=== PATIENT | male | born 1950 | race Caucasian/White ===

== ENCOUNTER 2024-08-07 15:25 | Day surgery (SDC) | payer MEDICARE, OTHER | END 2024-08-07 16:30 | disposition home or self-care (01) | LOC: SDC-PAIN 15:25 | PROVIDERS: ATTEND Psychiatry & Neurology Pain Medicine | DX: Z53.8 Procedure and treatment not carried out for other reasons (principal); E11.9 Type 2 diabetes mellitus without complications | CPT/HCPCS: 82947 ==

== ENCOUNTER 2024-08-21 15:06 | Day surgery (SDC) | payer MEDICARE, OTHER ==
[2024-08-21] MEDS ORDERED: BUPIVACAINE 0.5% VIAL IJ ONE (15:07)
[2024-08-21] MEDS ORDERED: Depo-Medrol 40 MG/ML IM ONE (15:07)
[2024-08-21] MEDS ORDERED: LIDOCAINE HCL 1% AMPUL 5 ML IJ ONE (15:07)
--- NOTE | 2024-08-21 18:24 | XRAY ---
Indication: Left SI joint injection. Intraoperative fluoroscopy provided for 16 seconds. Single digital spot image submitted for interpretation demonstrates posterior needle tip projecting over left SI joint. Small amount of contrast injected for needle tip placement. Correlate with intraoperative findings/report.
--- NOTE | 2024-08-22 09:16 | XRAY ---
16 seconds of fluoroscopy was used in surgery for a left sacroiliac joint injection.
== END 2024-08-21 17:07 | disposition home or self-care (01) ==
LOC: SDC-PAIN 15:06
PROVIDERS: ATTEND Psychiatry & Neurology Pain Medicine
DX: M46.1 Sacroiliitis, not elsewhere classified (principal); E11.9 Type 2 diabetes mellitus without complications
CPT/HCPCS: 27096; 72170; 77002; 82947; Q9966

== ENCOUNTER 2024-09-18 14:50 | Day surgery (SDC) | payer MEDICARE, OTHER ==
[2024-09-18] MEDS ORDERED: LIDOCAINE HCL 1% AMPUL 5 ML IJ ONE (14:51)
[2024-09-18] MEDS ORDERED: BUPIVACAINE 0.5% VIAL IJ ONE (14:51)
[2024-09-18] MEDS ORDERED: Depo-Medrol 40 MG/ML IM ONE (14:51)
--- NOTE | 2024-09-18 20:50 | XRAY ---
Indication: Left hip injection. Intraoperative fluoroscopy provided for 14 seconds. Single digital spot image submitted for interpretation demonstrates needle tip projecting lateral to left femur neck. Small amount of contrast injected for needle tip placement. Correlate with intraoperative findings/report.
--- NOTE | 2024-09-19 19:24 | XRAY ---
14 seconds of fluoroscopy was used in surgery for a left intra-articular hip injection.
== END 2024-09-18 18:25 | disposition home or self-care (01) ==
LOC: SDC-PAIN 14:50
PROVIDERS: ATTEND Psychiatry & Neurology Pain Medicine
DX: M16.12 Unilateral primary osteoarthritis, left hip (principal); E11.9 Type 2 diabetes mellitus without complications
CPT/HCPCS: 20610; 73501; 77002; 82947; Q9966

== ENCOUNTER 2025-03-20 11:10 | Observation (INO) | payer MEDICARE, OTHER ==
[2025-03-20] MEDS ORDERED: HUMULIN R ONE (11:38)
[2025-03-20] MEDS: HUMULIN R SQ ONE (11:39)
[2025-03-20 11:42] LABS: BASOPHIL % 0.4 % (0.2-1.2); Basophil (Absolute #) 0.03 x10^3/uL (0.01-0.08); Eosinophil (Absolute #) 0.06 x10^3/uL (0.04-0.54); Hematocrit 40.4 % (40.1-51.0); Hemoglobin 13.7 g/dL (13.7-17.5); IMMATURE GRAN # 0.03 x10^3u/L (0.001-0.031); IMMATURE GRAN % 0.4 % (0.001-0.429); Lymphocyte (Absolute #) 1.48 x10^3/uL (1.32-3.57); Mean Corpuscular Hemoglobin 30.9 pg (25.7-32.2); Mean Corpuscular Hgb Concent. 33.9 g/dL (32.3-36.5); Monocyte (Absolute #) 0.45 x10^3/uL (0.30-0.82); NUCLEATED RBC # 0.00 x10^3u/L (0.00-0.012); NUCLEATED RBC % 0.0 % (0.00-0.2); Platelet Count 189 x10^3/uL (163-337); Red Blood Count 4.43 x10^6/uL (4.63-6.08); White Blood Count 7.2 x10^3/uL (4.23-9.07)
--- NOTE | 2025-03-20 11:44 | ERPHSYRPT ---
- History of Present Illness Time Seen by Provider: 03/20/25 11:30 Source: patient Patient Subjective Stated Complaint: high blood sugar, pt states he is needing some insulin Triage Nursing Assessment: Pt presents to the ER via private vehicle. pt able to ambulate into the ER without complications. Pt alert and oriented x 4. Pt was seen in Dr. Foy office today where he presented for high blood sugar. The RN at the clinic told the pt to come to the ED because the blood sugar meter was reading "high". Blood suygar rechecked in the ER and meter still reading "high". Pt states that he has been experiencing dizziness. Pt denies nausea, vomiting, diarrhea. Physician History: Patient presents for high blood sugar. He reports his blood sugars been in the 300s for at least several weeks. He is taking oral medications for his diabetes but does not know the names. He states he was previously on insulin to years ago. He believes his blood sugar is high because he has been eating foods high in glucose and sugars. He said no recent infection including no cough or urinary symptoms. He has had no vomiting or abdominal pain. He said no confusion. Does state he feels lightheaded when he is up moving around and has had urinary frequency Allergies/Adverse Reactions: No Known Drug Allergies Allergy (Verified 03/20/25 11:17) Hx Tetanus, Diphtheria Vaccination/Date Given: No Hx Influenza Vaccination/Date Given: No Hx Pneumococcal Vaccination/Date Given: No Immunizations Up to Date: Yes Travel Risk - International Travel Have you traveled outside of the country in past 3 weeks: No - Emerging Infectious Disease Are you exhibiting symptoms associated with any current EIDs: No - Review of Systems Constitutional: No Fever, No Chills Eyes: No Symptoms Ears, Nose, & Throat: No Symptoms Respiratory: No Cough, No Dyspnea Cardiac: No Chest Pain, No Edema, No Syncope Abdominal/Gastrointestinal: No Abdominal Pain, No Nausea, No Vomiting, No Diarrhea Genitourinary Symptoms: No Dysuria Musculoskeletal: No Back Pain, No Neck Pain Skin: No Rash Neurological: Dizziness, No Focal Weakness, No Sensory Changes Psychological: No Symptoms Endocrine: No Symptoms All Other Systems: Reviewed and Negative - Past Medical History Neurological History: Peripheral Neuropathy ENT History: No Pertinent History Cardiac History: High Cholesterol Respiratory History: Other Endocrine Medical History: Diabetes Type II Musculoskeletal History: Osteoarthritis GI Medical History: No Pertinent History History: No Pertinent History Psycho-Social History: No Pertinent History Male Reproductive Disorders: No Pertinent History Other Medical History: 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 PATIENT IS SUPPOSE TO BE ON 2L O2 EVERYDAY, BUT HE ONLY SLEEPS WITH IT. - Past Surgical History Past Surgical History: No Neuro Surgical History: No Pertinent History Cardiac: No Pertinent History Respiratory: No Pertinent History Gastrointestinal: No Pertinent History Genitourinary: No Pertinent History Musculoskeletal: No Pertinent History Male Surgical History: No Pertinent History - Social History Smoking Status: Former smoker Exposure to second hand smoke: No Drug Use: none - Social Determinants of Health Will the patient participate in the screening: Yes Do you worry about a steady place to live?: No Do you have any problems with any of the following?: No known problems In the past 12 months,have you had to go without utilities?: No Transportation Issues: No Has anyone in your support network made you feel unsafe?: No Have you or anyone in your house had to go w/o enough food: No - Nursing Vital Signs Nursing Vital Signs: Initial Vital Signs Temperature 96.8 F 03/20/25 11:18 Pulse Rate 97 H 03/20/25 11:18 Respiratory Rate 15 03/20/25 11:18 Blood Pressure 183/90 03/20/25 11:18 O2 Sat by Pulse Oximetry 96 03/20/25 11:18 Pain Scale Pain Intensity 0 - Physical Exam General Appearance: no apparent distress, alert Eye Exam: PERRL/EOMI, eyes nml inspection Ears, Nose, Throat Exam: normal ENT inspection, TMs normal, pharynx normal, moist mucous membranes Neck Exam: normal inspection, non-tender, supple, full range of motion Respiratory Exam: normal breath sounds, lungs clear, No respiratory distress Cardiovascular Exam: regular rate/rhythm, normal heart sounds, normal peripheral pulses Gastrointestinal/Abdomen Exam: soft, normal bowel sounds, No tenderness, No mass Back Exam: normal inspection, normal range of motion, No CVA tenderness, No vertebral tenderness Extremity Exam: normal inspection, normal range of motion, pelvis stable Neurologic Exam: alert, oriented x 3, cooperative, normal mood/affect, nml cerebellar function, nml station & gait, sensation nml, No motor deficits Skin Exam: normal color, warm, dry, No rash Lymphatic Exam: No adenopathy SpO2: 96 Ordered Tests: Active Orders 24 hr Category Date Time Status IV Insertion STAT Care 03/20/25 11:18 Active CBC W DIFF Stat Lab 03/20/25 11:39 Completed CMP Stat Lab 03/20/25 11:39 Completed POCT GLUCOSE Stat Lab 03/20/25 11:19 Received POCT GLUCOSE Stat Lab 03/20/25 13:05 Completed UA W/RFX UR CULTURE Stat Lab 03/20/25 11:46 Completed Transfer Order Routine Transfer 03/20/25 Ordered Medication Summary Generic Name Dose Route Start Last Admin Trade Name Freq PRN Reason Stop Dose Admin Sodium Chloride 1,000 mls @ 999 mls/hr 03/20/25 13:09 Sodium Chloride 0.9% 1000 Ml IV 03/20/25 14:09 .Q1H1M STA Discontinued Medications Generic Name Dose Route Start Last Admin Trade Name Freq PRN Reason Stop Dose Admin Sodium Chloride 1,000 mls @ 999 mls/hr 03/20/25 11:18 03/20/25 12:56 Sodium Chloride 0.9% 1000 Ml IV 03/20/25 12:18 Infused .Q1H1M STA Infusion Sodium Chloride Confirm 03/20/25 11:38 Sodium Chloride 0.9% 1000 Ml Administered 03/20/25 11:39 Dose 1,000 mls @ ud .ROUTE .STK-MED ONE Insulin Human Regular 10 unit 03/20/25 11:22 03/20/25 11:39 Insulin Regular, Human 1 Unit SQ 03/20/25 11:23 10 unit STAT ONE Administration Insulin Human Regular Confirm 03/20/25 11:38 Insulin Regular, Human 1 Unit Administered 03/20/25 11:39 Dose 10 unit .ROUTE .STK-MED ONE Lab/Rad Data: Laboratory Result Diagrams 03/20/25 11:39 03/20/25 11:39 Laboratory Results 03/20/25 03/20/25 03/20/25 Range/Units 13:05 11:46 11:39 WBC (4.23-9.07) x10^3/uL RBC (4.63-6.08) x10^6/uL Hgb (13.7-17.5) g/dL Hct (40.1-51.0) % MCV (79.0-92.2) fL MCH (25.7-32.2) pg MCHC (32.3-36.5) g/dL RDW (11.6-14.4) % Plt Count (163-337) x10^3/uL MPV (9.4-12.4) fL Gran % (34.0-67.9) % Immature Gran % (Auto) (0.001-0.429) % Nucleat RBC Rel Count (0.00-0.2) % Eos # (Auto) (0.04-0.54) x10^3/uL Immature Gran # (Auto) (0.001-0.031) x10^3u/L Absolute Lymphs (auto) (1.32-3.57) x10^3/uL Absolute Monos (auto) (0.30-0.82) x10^3/uL Absolute Nucleated RBC (0.00-0.012) x10^3u/L Lymphocytes % (21.8-53.1) % Monocytes % (5.3-12.2) % Eosinophils % (0.8-7.0) % Basophils % (0.2-1.2) % Absolute Granulocytes (1.78-5.38) x10^3/uL Basophils # (0.01-0.08) x10^3/uL Sodium 129 L (135-145) mmol/L Potassium 5.1 (3.5-5.1) mmol/L Chloride 96 L (98-107) mmol/L Carbon Dioxide 21 L (22-30) mmol/L Anion Gap 16.5 H (5-15) MEQ/L BUN 28 H (9-20) mg/dL Creatinine 1.08 (0.66-1.25) mg/dL Estimated GFR 72.0 ML/MIN Glucose 699 H* (74-106) mg/dL POC Glucometer 535 H* (50 to 500) mg/dL Calcium 9.4 (8.4-10.2) mg/dL Total Bilirubin 0.50 (0.2-1.3) mg/dL AST 26 (17-59) U/L ALT 37 (0-50) U/L Alkaline Phosphatase 110 (38-126) U/L Serum Total Protein 7.1 (6.3-8.2) g/dL Albumin 4.1 (3.5-5.0) g/dL Urine Color Yellow (Yellow) Urine Appearance Clear (Clear) Urine pH 5.0 (4.6-8.0) Ur Specific [place] >=1.030 A (1.005-1.030) Urine Protein Negative (Negative) Urine Glucose (UA) >=1000 A (Negative) mg/dL Urine Ketones 15 A (Negative) Urine Blood Negative (Negative) Urine Nitrite Negative (Negative) Urine Bilirubin Negative (Negative) Urine Urobilinogen 0.2 (0.2) mg/dL Ur Leukocyte Esterase Negative (Negative) U Hyaline Cast (Auto) NONE SEEN (0-2) /LPF Urine Microscopic RBC 0-2 (0-5) /HPF Urine Microscopic WBC 0-2 (0-5) /HPF Ur Epithelial Cells None Seen (None Seen) /HPF Urine Bacteria None Seen (None Seen) /HPF Urine Culture Reflexed NO (NO) 03/20/25 Range/Units 11:39 WBC 7.2 (4.23-9.07) x10^3/uL RBC 4.43 L (4.63-6.08) x10^6/uL Hgb 13.7 (13.7-17.5) g/dL Hct 40.4 (40.1-51.0) % MCV 91.2 (79.0-92.2) fL MCH 30.9 (25.7-32.2) pg MCHC 33.9 (32.3-36.5) g/dL RDW 12.6 (11.6-14.4) % Plt Count 189 (163-337) x10^3/uL MPV 10.6 (9.4-12.4) fL Gran % 71.4 H (34.0-67.9) % Immature Gran % (Auto) 0.4 (0.001-0.429) % Nucleat RBC Rel Count 0.0 (0.00-0.2) % Eos # (Auto) 0.06 (0.04-0.54) x10^3/uL Immature Gran # (Auto) 0.03 (0.001-0.031) x10^3u/L Absolute Lymphs (auto) 1.48 (1.32-3.57) x10^3/uL Absolute Monos (auto) 0.45 (0.30-0.82) x10^3/uL Absolute Nucleated RBC 0.00 (0.00-0.012) x10^3u/L Lymphocytes % 20.7 L (21.8-53.1) % Monocytes % 6.3 (5.3-12.2) % Eosinophils % 0.8 (0.8-7.0) % Basophils % 0.4 (0.2-1.2) % Absolute Granulocytes 5.10 (1.78-5.38) x10^3/uL Basophils # 0.03 (0.01-0.08) x10^3/uL Sodium (135-145) mmol/L Potassium (3.5-5.1) mmol/L Chloride (98-107) mmol/L Carbon Dioxide (22-30) mmol/L Anion Gap (5-15) MEQ/L BUN (9-20) mg/dL Creatinine (0.66-1.25) mg/dL Estimated GFR ML/MIN Glucose (74-106) mg/dL POC Glucometer (50 to 500) mg/dL Calcium (8.4-10.2) mg/dL Total Bilirubin (0.2-1.3) mg/dL AST (17-59) U/L ALT (0-50) U/L Alkaline Phosphatase (38-126) U/L Serum Total Protein (6.3-8.2) g/dL Albumin (3.5-5.0) g/dL Urine Color (Yellow) Urine Appearance (Clear) Urine pH (4.6-8.0) Ur Specific [place] (1.005-1.030) Urine Protein (Negative) Urine Glucose (UA) (Negative) mg/dL Urine Ketones (Negative) Urine Blood (Negative) Urine Nitrite (Negative) Urine Bilirubin (Negative) Urine Urobilinogen (0.2) mg/dL Ur Leukocyte Esterase (Negative) U Hyaline Cast (Auto) (0-2) /LPF Urine Microscopic RBC (0-5) /HPF Urine Microscopic WBC (0-5) /HPF Ur Epithelial Cells (None Seen) /HPF Urine Bacteria (None Seen) /HPF Urine Culture Reflexed (NO) - Progress Progress Note: 03/20/25 1Workup returned with blood sugar 690s. Ketones in urine. Reports dizziness. Liter of IV fluids and 10 units subcu insulin on arrival.Will discussed with hospitalist for observation for IV hydration and glucose management. 03/20/25 13:12 Patient was reexamined. Small [place] ketones in urine and blood glucose 690. IV fluids and insulin were given. The case was discussed with the hospitalist. Will accept the patient to [facility]. She did not want insulin drip started in the department feels that could be managed with subcu insulin. Second liter IV fluids were ordered. Will be admitted to working.Patient was updated and agreeable with plan Medical Desision Making - Discussion of managment Care discussed with:: hospitalist - Departure Departure Disposition: Observation Clinical Impression: Hyperglycemia due to type 2 diabetes mellitus Condition: Stable Critical Care Time: No Referrals: NASIR CHAVEZ [Primary Care Provider, [facility]] - Follow up/PCP as directed
[2025-03-20 11:53] LABS: Calcium 9.4 mg/dL (8.4-10.2); Carbon Dioxide 21.0 mmol/L (22-30); Creatinine 1 1.08 mg/dL (0.66-1.25); EST GLOMERULAR FILTRATION RATE 72.0 ML/MIN; Potassium 5.1 mmol/L (3.5-5.1); SGOT/AST 26.0 U/L (17-59); SGPT/ALT 37.0 U/L (0-50); Total Protein 7.1 g/dL (6.3-8.2)
[2025-03-20 12:02] LABS: Glucose 699.0 mg/dL (74-106)
[2025-03-20 12:03] LABS: Glucose, Urine >=1000 mg/dL (Negative); Protein,Urine Dip Negative (Negative); RBC 0-2 /HPF (0-5); WBC 0-2 /HPF (0-5)
--- NOTE | 2025-03-20 14:44 | PCM.HP ---
<BALDEMAR RAINES - Last Filed: 03/20/25 14:59> History of Present Illness - Chief Complaint Chief Complaint: DKA Date: 03/20/25 History of Present Illness: is a 74 year old male with a history of type 2 diabetes mellitus, hyperlipidemia, peripheral neuropathy, and osteoarthritis who presented to the emergency department at the direction of his primary care provider for severe hyperglycemia. He reports home blood glucose readings persistently in the 300s for the past week, acknowledging dietary indiscretion with frequent intake of high-sugar foods. He is uncertain of his oral diabetic medications and notes he was previously on insulin several years ago. He does report that he takes Metformin and is compliant with all of his medications. He denies fever, cough, dysuria, abdominal pain, nausea, vomiting, or confusion, though endorses mild lightheadedness and urinary frequency. At his PCPs office, capillary glucose was unreadable (high) on meter, prompting referral to the ED. On arrival, he was hypertensive but otherwise hemodynamically stable. Laboratory evaluation revealed glucose 535 (after 10 U regular insulin), sodium 128 (pseudohyponatremia in context of hyperglycemia), chloride 96, bicarbonate 21 , anion gap 16.5, and BUN 28 mg/dL. CBC was unremarkable. Urinalysis showed glucose > 1000 mg/dL and ketones 15 mg/dL, consistent with mild diabetic ketoacidosis. No leukocytosis or localizing symptoms suggesting infection. Patient received a 2-liter IV fluid bolus and 10 U IV regular insulin in the ED, with glucose reduction but persistent metabolic derangements. Admission is warranted for DKA management and metabolic monitoring. - Review of Systems Constitutional: No Symptoms Eyes: No Symptoms Ears, Nose, & Throat: No Symptoms Respiratory: No Symptoms Cardiac: No Symptoms Abdominal/Gastrointestinal: No Symptoms Genitourinary Symptoms: No Symptoms Musculoskeletal: No Symptoms Skin: No Symptoms Neurological: Dizziness Psychological: No Symptoms Endocrine: No Symptoms Hematologic/Lymphatic: No Symptoms Immunological/Allergic: No Symptoms Medications & Allergies Home Medications: Home Medication List Albuterol Sulfate [Albuterol Sulfate Hfa] 2 puffs IH Q6H 03/20/25 [History Confirmed 03/20/25] Atorvastatin Calcium 20 mg PO HS 03/20/25 [History Confirmed 03/20/25] Blood Sugar Diagnostic [Onetouch Verio Test Strip] See Rx Instructions .ROUTE .COMPLEX 03/20/25 [History Confirmed 03/20/25] Blood-Glucose Meter [Onetouch Verio Flex Meter] See Rx Instructions .ROUTE .COMPLEX 03/20/25 [History Confirmed 03/20/25] Calcium Carbonate [Calcium] 600 mg PO DAILY 03/20/25 [History Confirmed 03/20/25] Fluticasone Propionate See Rx Instructions .ROUTE .COMPLEX 03/20/25 [History Confirmed 03/20/25] Loratadine 10 mg PO DAILY 03/20/25 [History Confirmed 03/20/25] Meloxicam 15 mg PO DAILY 03/20/25 [History Confirmed 03/20/25] Metformin HCl [Metformin ER Osmotic] 1,000 mg PO DAILY 03/20/25 [History Confirmed 03/20/25] Metoprolol Succinate 25 mg PO DAILY 03/20/25 [History Confirmed 03/20/25] Mupirocin See Rx Instructions .ROUTE .COMPLEX 03/20/25 [History Confirmed 03/20/25] Umeclidinium Brm/Vilanterol Tr [Anoro Ellipta 62.5-25 Mcg INH] See Rx Instructions .ROUTE .COMPLEX 03/20/25 [History Confirmed 03/20/25] glyBURIDE [Glyburide] 5 mg PO BID 03/20/25 [History Confirmed 03/20/25] Allergies/Adverse Reactions: Allergies Allergy/AdvReac Type Severity Reaction Status Date / Time No Known Drug Allergies Allergy Verified 03/20/25 11:17 - Past Medical History Neurological History: Peripheral Neuropathy ENT History: No Pertinent History Cardiac History: High Cholesterol Respiratory History: Other Endocrine Medical History: Diabetes Type II Musculoskelatal History: Osteoarthritis GI Medical History: No Pertinent History History: No Pertinent History Pyscho-Social History: No Pertinent History Male Reproductive Disorders: No Pertinent History Comment: 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 PATIENT IS SUPPOSE TO BE ON 2L O2 EVERYDAY, BUT HE ONLY SLEEPS WITH IT. - Past Surgical History Past Surgical History: No Neuro Surgical History: No Pertinent History Cardiac History: No Pertinent History Respiratory Surgery: No Pertinent History GI Surgical History: No Pertinent History Genitourinary Surgical Hx: No Pertinent History Musculskeletal Surgical Hx: No Pertinent History Male Surgical History: No Pertinent History Significant Family History: cancer, diabetes - Social History Smoking Status: Former smoker Exposure to second hand smoke: No Alcohol: Rarely Drug Use: none - Social Determinants of Health Will the patient participate in the screening: Yes Do you worry about a steady place to live?: No Do you have any problems with any of the following?: No known problems In the past 12 months,have you had to go without utilities?: No Have you or anyone in your house had to go without enough: No Transportation Issues: No Has anyone in your support network made you feel unsafe?: No - Physical Exam Vital Signs: Vital Signs - 24 hr Temp Pulse Resp BP BP Pulse Ox 03/20/25 13:14 96 03/20/25 13:10 97 03/20/25 13:02 81 18 97 03/20/25 12:31 160/68 96 03/20/25 12:01 166/90 95 03/20/25 11:30 87 16 180/90 96 03/20/25 11:18 96.8 F 97 H 15 183/90 96 General Appearance: no apparent distress Neurologic Exam: alert, oriented x 3, cooperative Eye Exam: PERRL/EOMI Ears, Nose, Throat Exam: normal ENT inspection Neck Exam: normal inspection Respiratory Exam: normal breath sounds, lungs clear Cardiovascular Exam: regular rate/rhythm, normal heart sounds Gastrointestinal/Abdomen Exam: soft, normal bowel sounds Rectal Exam: deferred Back Exam: normal inspection Extremity Exam: normal inspection, normal range of motion Skin Exam: normal color Results - Labs Lab/Micro Results: Lab Results-Last 24 Hours 03/20/25 03/20/25 03/20/25 Range/Units 11:39 11:39 11:46 WBC 7.2 (4.23-9.07) x10^3/uL RBC 4.43 L (4.63-6.08) x10^6/uL Hgb 13.7 (13.7-17.5) g/dL Hct 40.4 (40.1-51.0) % MCV 91.2 (79.0-92.2) fL MCH 30.9 (25.7-32.2) pg MCHC 33.9 (32.3-36.5) g/dL RDW 12.6 (11.6-14.4) % Plt Count 189 (163-337) x10^3/uL MPV 10.6 (9.4-12.4) fL Gran % 71.4 H (34.0-67.9) % Immature Gran % (Auto) 0.4 (0.001-0.429) % Nucleat RBC Rel Count 0.0 (0.00-0.2) % Eos # (Auto) 0.06 (0.04-0.54) x10^3/uL Immature Gran # (Auto) 0.03 (0.001-0.031) x10^3u/L Absolute Lymphs (auto) 1.48 (1.32-3.57) x10^3/uL Absolute Monos (auto) 0.45 (0.30-0.82) x10^3/uL Absolute Nucleated RBC 0.00 (0.00-0.012) x10^3u/L Lymphocytes % 20.7 L (21.8-53.1) % Monocytes % 6.3 (5.3-12.2) % Eosinophils % 0.8 (0.8-7.0) % Basophils % 0.4 (0.2-1.2) % Absolute Granulocytes 5.10 (1.78-5.38) x10^3/uL Basophils # 0.03 (0.01-0.08) x10^3/uL Sodium 129 L (135-145) mmol/L Potassium 5.1 (3.5-5.1) mmol/L Chloride 96 L (98-107) mmol/L Carbon Dioxide 21 L (22-30) mmol/L Anion Gap 16.5 H (5-15) MEQ/L BUN 28 H (9-20) mg/dL Creatinine 1.08 (0.66-1.25) mg/dL Estimated GFR 72.0 ML/MIN Glucose 699 H* (74-106) mg/dL POC Glucometer (50 to 500) mg/dL Calcium 9.4 (8.4-10.2) mg/dL Total Bilirubin 0.50 (0.2-1.3) mg/dL AST 26 (17-59) U/L ALT 37 (0-50) U/L Alkaline Phosphatase 110 (38-126) U/L Serum Total Protein 7.1 (6.3-8.2) g/dL Albumin 4.1 (3.5-5.0) g/dL Urine Color Yellow (Yellow) Urine Appearance Clear (Clear) Urine pH 5.0 (4.6-8.0) Ur Specific [place] >=1.030 A (1.005-1.030) Urine Protein Negative (Negative) Urine Glucose (UA) >=1000 A (Negative) mg/dL Urine Ketones 15 A (Negative) Urine Blood Negative (Negative) Urine Nitrite Negative (Negative) Urine Bilirubin Negative (Negative) Urine Urobilinogen 0.2 (0.2) mg/dL Ur Leukocyte Esterase Negative (Negative) U Hyaline Cast (Auto) NONE SEEN (0-2) /LPF Urine Microscopic RBC 0-2 (0-5) /HPF Urine Microscopic WBC 0-2 (0-5) /HPF Ur Epithelial Cells None Seen (None Seen) /HPF Urine Bacteria None Seen (None Seen) /HPF Urine Culture Reflexed NO (NO) 03/20/25 03/20/25 Range/Units 13:05 13:54 WBC (4.23-9.07) x10^3/uL RBC (4.63-6.08) x10^6/uL Hgb (13.7-17.5) g/dL Hct (40.1-51.0) % MCV (79.0-92.2) fL MCH (25.7-32.2) pg MCHC (32.3-36.5) g/dL RDW (11.6-14.4) % Plt Count (163-337) x10^3/uL MPV (9.4-12.4) fL Gran % (34.0-67.9) % Immature Gran % (Auto) (0.001-0.429) % Nucleat RBC Rel Count (0.00-0.2) % Eos # (Auto) (0.04-0.54) x10^3/uL Immature Gran # (Auto) (0.001-0.031) x10^3u/L Absolute Lymphs (auto) (1.32-3.57) x10^3/uL Absolute Monos (auto) (0.30-0.82) x10^3/uL Absolute Nucleated RBC (0.00-0.012) x10^3u/L Lymphocytes % (21.8-53.1) % Monocytes % (5.3-12.2) % Eosinophils % (0.8-7.0) % Basophils % (0.2-1.2) % Absolute Granulocytes (1.78-5.38) x10^3/uL Basophils # (0.01-0.08) x10^3/uL Sodium (135-145) mmol/L Potassium (3.5-5.1) mmol/L Chloride (98-107) mmol/L Carbon Dioxide (22-30) mmol/L Anion Gap (5-15) MEQ/L BUN (9-20) mg/dL Creatinine (0.66-1.25) mg/dL Estimated GFR ML/MIN Glucose (74-106) mg/dL POC Glucometer 535 H* 460 H (50 to 500) mg/dL Calcium (8.4-10.2) mg/dL Total Bilirubin (0.2-1.3) mg/dL AST (17-59) U/L ALT (0-50) U/L Alkaline Phosphatase (38-126) U/L Serum Total Protein (6.3-8.2) g/dL Albumin (3.5-5.0) g/dL Urine Color (Yellow) Urine Appearance (Clear) Urine pH (4.6-8.0) Ur Specific [place] (1.005-1.030) Urine Protein (Negative) Urine Glucose (UA) (Negative) mg/dL Urine Ketones (Negative) Urine Blood (Negative) Urine Nitrite (Negative) Urine Bilirubin (Negative) Urine Urobilinogen (0.2) mg/dL Ur Leukocyte Esterase (Negative) U Hyaline Cast (Auto) (0-2) /LPF Urine Microscopic RBC (0-5) /HPF Urine Microscopic WBC (0-5) /HPF Ur Epithelial Cells (None Seen) /HPF Urine Bacteria (None Seen) /HPF Urine Culture Reflexed (NO) Accuchecks Date 03/20/25 Date 03/20/25 Date 03/20/25 Time 13:55 Time 13:07 Time 11:20 Assessment/Plan (1) DKA (diabetic ketoacidosis) Current Visit: Yes Status: Acute Assessment & Plan: - Mild Diabetic Ketoacidosis Gap at 16.5, glucose level at 535 on arrival -Last A1c in December was 8.31 - patient reports it has been worse and required insulin in the past -Continue IV regular insulin infusion per DKA protocol with hourly glucose monitoring. -Maintain IV fluids: start with 0.9% NaCl 150 mL/hr, adjust based on corrected sodium and hemodynamics. -Add D5 NS once glucose < 250 mg/dL. -Transition to subcutaneous basal-bolus regimen once anion gap closes and patient tolerates oral intake. -Monitor BMP every 4 hours for resolution of acidosis and electrolyte shifts. -Replace potassium as indicated per protocol- Hold insulin drip if potassium level less than 3.3 -Evaluate for precipitating causes (infection, medication, dietary non- adherence). -Consult museum educator prior to discharge for insulin teaching and dietary review. Code(s): E11.10 - TYPE 2 DIABETES MELLITUS WITH KETOACIDOSIS WITHOUT COMA (2) Hyponatremia Current Visit: Yes Status: Acute Assessment & Plan: -Corrected sodium -132-; no specific intervention beyond glucose control and hydration. -Recheck sodium with subsequent BMPs. Code(s): E87.1 - HYPO-OSMOLALITY AND HYPONATREMIA (3) DMII (diabetes mellitus, type 2) Current Visit: Yes Status: Acute Assessment & Plan: -Resume long-term management after DKA resolution: transition to basal-bolus insulin initially. -Obtain HbA1c to assess chronic control. -Outpatient endocrinology follow-up for medication optimization and adherence counseling. (4) HLD (hyperlipidemia) Current Visit: Yes Status: Acute Assessment & Plan: -continue statin Code(s): E78.5 - HYPERLIPIDEMIA, UNSPECIFIED (5) Peripheral neuropathy Current Visit: Yes Status: Acute Assessment & Plan: -Continue current neuropathic pain regimen; assess for glycemic contribution and need for medication adjustment. Code(s): G62.9 - POLYNEUROPATHY, UNSPECIFIED (6) Osteoarthritis Current Visit: Yes Status: Acute Assessment & Plan: Continue supportive measures; avoid NSAIDs while dehydrated or on insulin drip due to renal stress risk. VTE: Lovenox PPI: protonix Dispo: 1-2 days Code status: Full Code This patient required critical care management for diabetic ketoacidosis (DKA), a life-threatening metabolic emergency with significant risk of decompensation due to severe hyperglycemia, dehydration, and metabolic acidosis. The patient was at risk for cardiovascular instability, electrolyte derangements, and potential respiratory compromise from acid-base imbalance. Critical care time was devoted to direct management and monitoring of DKA, including interpretation of serial metabolic panels, initiation and titration of IV insulin infusion, management of IV fluids and electrolyte replacement, and coordination of nursing care and laboratory monitoring. Additional time was spent reviewing prior records, assessing for precipitating causes, and dev eloping an ongoing stabilization plan. Total critical care time: 45 minutes (exclusive of separately billable procedures). Code(s): M19.90 - UNSPECIFIED OSTEOARTHRITIS, UNSPECIFIED SITE <MAYANK SCHOFIELD - Last Filed: 03/21/25 09:46> History of Present Illness - Chief Complaint History of Present Illness: is a 74 year old male. - Physical Exam Vital Signs: Vital Signs - 24 hr Temp Pulse Resp BP BP Pulse Ox 03/21/25 08:00 78 129/67 98 03/21/25 07:38 97 03/21/25 07:00 62 152/86 98 03/21/25 06:00 70 21 124/72 98 03/21/25 05:00 76 28 H 134/71 97 03/21/25 04:00 97.4 F 63 18 141/68 96 03/21/25 03:00 67 23 107/85 96 03/21/25 02:00 70 18 122/70 94 L 03/21/25 00:01 71 03/21/25 00:00 97.2 F 71 16 122/46 98 03/20/25 23:21 57 L 15 122/81 98 03/20/25 23:01 71 24 98 03/20/25 22:00 63 24 136/72 97 03/20/25 21:00 81 18 122/57 96 03/20/25 20:00 98.2 F 64 25 H 138/72 96 03/20/25 19:00 66 23 133/72 95 03/20/25 18:01 69 22 134/61 96 03/20/25 17:01 98.0 F 70 17 144/80 95 03/20/25 16:39 79 18 97 03/20/25 16:16 77 19 135/62 95 03/20/25 16:14 77 25 H 95 03/20/25 15:08 98.1 F 76 15 156/67 93 L 03/20/25 14:41 69 16 156/67 95 03/20/25 13:14 96 03/20/25 13:10 97 03/20/25 13:02 81 18 97 03/20/25 12:31 160/68 96 03/20/25 12:01 166/90 95 03/20/25 11:30 87 16 180/90 96 03/20/25 11:18 96.8 F 97 H 15 183/90 96 Results - Labs Lab/Micro Results: Lab Results-Last 24 Hours 03/20/25 03/20/25 03/20/25 Range/Units 11:39 11:39 11:42 WBC 7.2 (4.23-9.07) x10^3/uL RBC 4.43 L (4.63-6.08) x10^6/uL Hgb 13.7 (13.7-17.5) g/dL Hct 40.4 (40.1-51.0) % MCV 91.2 (79.0-92.2) fL MCH 30.9 (25.7-32.2) pg MCHC 33.9 (32.3-36.5) g/dL RDW 12.6 (11.6-14.4) % Plt Count 189 (163-337) x10^3/uL MPV 10.6 (9.4-12.4) fL Gran % 71.4 H (34.0-67.9) % Immature Gran % (Auto) 0.4 (0.001-0.429) % Nucleat RBC Rel Count 0.0 (0.00-0.2) % Eos # (Auto) 0.06 (0.04-0.54) x10^3/uL Immature Gran # (Auto) 0.03 (0.001-0.031) x10^3u/L Absolute Lymphs (auto) 1.48 (1.32-3.57) x10^3/uL Absolute Monos (auto) 0.45 (0.30-0.82) x10^3/uL Absolute Nucleated RBC 0.00 (0.00-0.012) x10^3u/L Lymphocytes % 20.7 L (21.8-53.1) % Monocytes % 6.3 (5.3-12.2) % Eosinophils % 0.8 (0.8-7.0) % Basophils % 0.4 (0.2-1.2) % Absolute Granulocytes 5.10 (1.78-5.38) x10^3/uL Basophils # 0.03 (0.01-0.08) x10^3/uL pO2/FiO2 Ratio % VBG pH (7.32-7.42) VBG pCO2 at Pat Temp (42-55) mm/Hg VBG pO2 at Pat Temp (25-40) mm/Hg VBG HCO3 (22-28) meq/L VBG O2 Sat (Kristina) (95-100) VBG Base Excess (-2.0-2.0) VBG Hemoglobin VBG Carboxyhemoglobin (0.0-6.9) % T HGB POC Potassium (3.5-5.1) Sodium 129 L (135-145) mmol/L Potassium 5.1 (3.5-5.1) mmol/L Chloride 96 L (98-107) mmol/L Carbon Dioxide 21 L (22-30) mmol/L Anion Gap 16.5 H (5-15) MEQ/L BUN 28 H (9-20) mg/dL Creatinine 1.08 (0.66-1.25) mg/dL Estimated GFR 72.0 ML/MIN Glucose 699 H* (74-106) mg/dL POC Glucometer (50 to 500) mg/dL Hemoglobin A1c 13.96 H (4.5-6.0) % Calcium 9.4 (8.4-10.2) mg/dL Phosphorus (2.5-4.5) mg/dL Magnesium (1.6-2.3) mg/dL Total Bilirubin 0.50 (0.2-1.3) mg/dL AST 26 (17-59) U/L ALT 37 (0-50) U/L Alkaline Phosphatase 110 (38-126) U/L Serum Total Protein 7.1 (6.3-8.2) g/dL Albumin 4.1 (3.5-5.0) g/dL Urine Color (Yellow) Urine Appearance (Clear) Urine pH (4.6-8.0) Ur Specific [place] (1.005-1.030) Urine Protein (Negative) Urine Glucose (UA) (Negative) mg/dL Urine Ketones (Negative) Urine Blood (Negative) Urine Nitrite (Negative) Urine Bilirubin (Negative) Urine Urobilinogen (0.2) mg/dL Ur Leukocyte Esterase (Negative) U Hyaline Cast (Auto) (0-2) /LPF Urine Microscopic RBC (0-5) /HPF Urine Microscopic WBC (0-5) /HPF Ur Epithelial Cells (None Seen) /HPF Urine Bacteria (None Seen) /HPF Urine Culture Reflexed (NO) 03/20/25 03/20/25 03/20/25 Range/Units 11:46 13:05 13:54 WBC (4.23-9.07) x10^3/uL RBC (4.63-6.08) x10^6/uL Hgb (13.7-17.5) g/dL Hct (40.1-51.0) % MCV (79.0-92.2) fL MCH (25.7-32.2) pg MCHC (32.3-36.5) g/dL RDW (11.6-14.4) % Plt Count (163-337) x10^3/uL MPV (9.4-12.4) fL Gran % (34.0-67.9) % Immature Gran % (Auto) (0.001-0.429) % Nucleat RBC Rel Count (0.00-0.2) % Eos # (Auto) (0.04-0.54) x10^3/uL Immature Gran # (Auto) (0.001-0.031) x10^3u/L Absolute Lymphs (auto) (1.32-3.57) x10^3/uL Absolute Monos (auto) (0.30-0.82) x10^3/uL Absolute Nucleated RBC (0.00-0.012) x10^3u/L Lymphocytes % (21.8-53.1) % Monocytes % (5.3-12.2) % Eosinophils % (0.8-7.0) % Basophils % (0.2-1.2) % Absolute Granulocytes (1.78-5.38) x10^3/uL Basophils # (0.01-0.08) x10^3/uL pO2/FiO2 Ratio % VBG pH (7.32-7.42) VBG pCO2 at Pat Temp (42-55) mm/Hg VBG pO2 at Pat Temp (25-40) mm/Hg VBG HCO3 (22-28) meq/L VBG O2 Sat (Kristina) (95-100) VBG Base Excess (-2.0-2.0) VBG Hemoglobin VBG Carboxyhemoglobin (0.0-6.9) % T HGB POC Potassium (3.5-5.1) Sodium (135-145) mmol/L Potassium (3.5-5.1) mmol/L Chloride (98-107) mmol/L Carbon Dioxide (22-30) mmol/L Anion Gap (5-15) MEQ/L BUN (9-20) mg/dL Creatinine (0.66-1.25) mg/dL Estimated GFR ML/MIN Glucose (74-106) mg/dL POC Glucometer 535 H* 460 H (50 to 500) mg/dL Hemoglobin A1c (4.5-6.0) % Calcium (8.4-10.2) mg/dL Phosphorus (2.5-4.5) mg/dL Magnesium (1.6-2.3) mg/dL Total Bilirubin (0.2-1.3) mg/dL AST (17-59) U/L ALT (0-50) U/L Alkaline Phosphatase (38-126) U/L Serum Total Protein (6.3-8.2) g/dL Albumin (3.5-5.0) g/dL Urine Color Yellow (Yellow) Urine Appearance Clear (Clear) Urine pH 5.0 (4.6-8.0) Ur Specific [place] >=1.030 A (1.005-1.030) Urine Protein Negative (Negative) Urine Glucose (UA) >=1000 A (Negative) mg/dL Urine Ketones 15 A (Negative) Urine Blood Negative (Negative) Urine Nitrite Negative (Negative) Urine Bilirubin Negative (Negative) Urine Urobilinogen 0.2 (0.2) mg/dL Ur Leukocyte Esterase Negative (Negative) U Hyaline Cast (Auto) NONE SEEN (0-2) /LPF Urine Microscopic RBC 0-2 (0-5) /HPF Urine Microscopic WBC 0-2 (0-5) /HPF Ur Epithelial Cells None Seen (None Seen) /HPF Urine Bacteria None Seen (None Seen) /HPF Urine Culture Reflexed NO (NO) 03/20/25 03/20/25 03/20/25 Range/Units 15:02 15:44 15:50 WBC (4.23-9.07) x10^3/uL RBC (4.63-6.08) x10^6/uL Hgb (13.7-17.5) g/dL Hct (40.1-51.0) % MCV (79.0-92.2) fL MCH (25.7-32.2) pg MCHC (32.3-36.5) g/dL RDW (11.6-14.4) % Plt Count (163-337) x10^3/uL MPV (9.4-12.4) fL Gran % (34.0-67.9) % Immature Gran % (Auto) (0.001-0.429) % Nucleat RBC Rel Count (0.00-0.2) % Eos # (Auto) (0.04-0.54) x10^3/uL Immature Gran # (Auto) (0.001-0.031) x10^3u/L Absolute Lymphs (auto) (1.32-3.57) x10^3/uL Absolute Monos (auto) (0.30-0.82) x10^3/uL Absolute Nucleated RBC (0.00-0.012) x10^3u/L Lymphocytes % (21.8-53.1) % Monocytes % (5.3-12.2) % Eosinophils % (0.8-7.0) % Basophils % (0.2-1.2) % Absolute Granulocytes (1.78-5.38) x10^3/uL Basophils # (0.01-0.08) x10^3/uL pO2/FiO2 Ratio 21.0 % VBG pH 7.42 (7.32-7.42) VBG pCO2 at Pat Temp 38 L (42-55) mm/Hg VBG pO2 at Pat Temp 53 H (25-40) mm/Hg VBG HCO3 24.6 (22-28) meq/L VBG O2 Sat (Kristina) 89.8 L (95-100) VBG Base Excess 0.3 (-2.0-2.0) VBG Hemoglobin 13.4 VBG Carboxyhemoglobin 3.9 (0.0-6.9) % T HGB POC Potassium 4.4 (3.5-5.1) Sodium (135-145) mmol/L Potassium (3.5-5.1) mmol/L Chloride (98-107) mmol/L Carbon Dioxide (22-30) mmol/L Anion Gap (5-15) MEQ/L BUN (9-20) mg/dL Creatinine (0.66-1.25) mg/dL Estimated GFR ML/MIN Glucose (74-106) mg/dL POC Glucometer 401 H (50 to 500) mg/dL Hemoglobin A1c (4.5-6.0) % Calcium (8.4-10.2) mg/dL Phosphorus 3.5 (2.5-4.5) mg/dL Magnesium 1.8 (1.6-2.3) mg/dL Total Bilirubin (0.2-1.3) mg/dL AST (17-59) U/L ALT (0-50) U/L Alkaline Phosphatase (38-126) U/L Serum Total Protein (6.3-8.2) g/dL Albumin (3.5-5.0) g/dL Urine Color (Yellow) Urine Appearance (Clear) Urine pH (4.6-8.0) Ur Specific [place] (1.005-1.030) Urine Protein (Negative) Urine Glucose (UA) (Negative) mg/dL Urine Ketones (Negative) Urine Blood (Negative) Urine Nitrite (Negative) Urine Bilirubin (Negative) Urine Urobilinogen (0.2) mg/dL Ur Leukocyte Esterase (Negative) U Hyaline Cast (Auto) (0-2) /LPF Urine Microscopic RBC (0-5) /HPF Urine Microscopic WBC (0-5) /HPF Ur Epithelial Cells (None Seen) /HPF Urine Bacteria (None Seen) /HPF Urine Culture Reflexed (NO) 03/20/25 03/20/25 03/20/25 Range/Units 16:01 17:00 18:00 WBC (4.23-9.07) x10^3/uL RBC (4.63-6.08) x10^6/uL Hgb (13.7-17.5) g/dL Hct (40.1-51.0) % MCV (79.0-92.2) fL MCH (25.7-32.2) pg MCHC (32.3-36.5) g/dL RDW (11.6-14.4) % Plt Count (163-337) x10^3/uL MPV (9.4-12.4) fL Gran % (34.0-67.9) % Immature Gran % (Auto) (0.001-0.429) % Nucleat RBC Rel Count (0.00-0.2) % Eos # (Auto) (0.04-0.54) x10^3/uL Immature Gran # (Auto) (0.001-0.031) x10^3u/L Absolute Lymphs (auto) (1.32-3.57) x10^3/uL Absolute Monos (auto) (0.30-0.82) x10^3/uL Absolute Nucleated RBC (0.00-0.012) x10^3u/L Lymphocytes % (21.8-53.1) % Monocytes % (5.3-12.2) % Eosinophils % (0.8-7.0) % Basophils % (0.2-1.2) % Absolute Granulocytes (1.78-5.38) x10^3/uL Basophils # (0.01-0.08) x10^3/uL pO2/FiO2 Ratio % VBG pH (7.32-7.42) VBG pCO2 at Pat Temp (42-55) mm/Hg VBG pO2 at Pat Temp (25-40) mm/Hg VBG HCO3 (22-28) meq/L VBG O2 Sat (Kristina) (95-100) VBG Base Excess (-2.0-2.0) VBG Hemoglobin VBG Carboxyhemoglobin (0.0-6.9) % T HGB POC Potassium (3.5-5.1) Sodium 133 L (135-145) mmol/L Potassium 4.1 (3.5-5.1) mmol/L Chloride 104 (98-107) mmol/L Carbon Dioxide 23 (22-30) mmol/L Anion Gap 10.7 (5-15) MEQ/L BUN 24 H (9-20) mg/dL Creatinine 0.97 (0.66-1.25) mg/dL Estimated GFR 81.9 ML/MIN Glucose 250 H (74-106) mg/dL POC Glucometer 302 H 249 H (50 to 500) mg/dL Hemoglobin A1c (4.5-6.0) % Calcium 8.6 (8.4-10.2) mg/dL Phosphorus 3.1 (2.5-4.5) mg/dL Magnesium (1.6-2.3) mg/dL Total Bilirubin (0.2-1.3) mg/dL AST (17-59) U/L ALT (0-50) U/L Alkaline Phosphatase (38-126) U/L Serum Total Protein (6.3-8.2) g/dL Albumin (3.5-5.0) g/dL Urine Color (Yellow) Urine Appearance (Clear) Urine pH (4.6-8.0) Ur Specific [place] (1.005-1.030) Urine Protein (Negative) Urine Glucose (UA) (Negative) mg/dL Urine Ketones (Negative) Urine Blood (Negative) Urine Nitrite (Negative) Urine Bilirubin (Negative) Urine Urobilinogen (0.2) mg/dL Ur Leukocyte Esterase (Negative) U Hyaline Cast (Auto) (0-2) /LPF Urine Microscopic RBC (0-5) /HPF Urine Microscopic WBC (0-5) /HPF Ur Epithelial Cells (None Seen) /HPF Urine Bacteria (None Seen) /HPF Urine Culture Reflexed (NO) 03/20/25 03/20/25 03/20/25 Range/Units 18:00 18:57 19:58 WBC (4.23-9.07) x10^3/uL RBC (4.63-6.08) x10^6/uL Hgb (13.7-17.5) g/dL Hct (40.1-51.0) % MCV (79.0-92.2) fL MCH (25.7-32.2) pg MCHC (32.3-36.5) g/dL RDW (11.6-14.4) % Plt Count (163-337) x10^3/uL MPV (9.4-12.4) fL Gran % (34.0-67.9) % Immature Gran % (Auto) (0.001-0.429) % Nucleat RBC Rel Count (0.00-0.2) % Eos # (Auto) (0.04-0.54) x10^3/uL Immature Gran # (Auto) (0.001-0.031) x10^3u/L Absolute Lymphs (auto) (1.32-3.57) x10^3/uL Absolute Monos (auto) (0.30-0.82) x10^3/uL Absolute Nucleated RBC (0.00-0.012) x10^3u/L Lymphocytes % (21.8-53.1) % Monocytes % (5.3-12.2) % Eosinophils % (0.8-7.0) % Basophils % (0.2-1.2) % Absolute Granulocytes (1.78-5.38) x10^3/uL Basophils # (0.01-0.08) x10^3/uL pO2/FiO2 Ratio % VBG pH (7.32-7.42) VBG pCO2 at Pat Temp (42-55) mm/Hg VBG pO2 at Pat Temp (25-40) mm/Hg VBG HCO3 (22-28) meq/L VBG O2 Sat (Kristina) (95-100) VBG Base Excess (-2.0-2.0) VBG Hemoglobin VBG Carboxyhemoglobin (0.0-6.9) % T HGB POC Potassium (3.5-5.1) Sodium (135-145) mmol/L Potassium (3.5-5.1) mmol/L Chloride (98-107) mmol/L Carbon Dioxide (22-30) mmol/L Anion Gap (5-15) MEQ/L BUN (9-20) mg/dL Creatinine (0.66-1.25) mg/dL Estimated GFR ML/MIN Glucose (74-106) mg/dL POC Glucometer 266 H 206 H 192 H (50 to 500) mg/dL Hemoglobin A1c (4.5-6.0) % Calcium (8.4-10.2) mg/dL Phosphorus (2.5-4.5) mg/dL Magnesium (1.6-2.3) mg/dL Total Bilirubin (0.2-1.3) mg/dL AST (17-59) U/L ALT (0-50) U/L Alkaline Phosphatase (38-126) U/L Serum Total Protein (6.3-8.2) g/dL Albumin (3.5-5.0) g/dL Urine Color (Yellow) Urine Appearance (Clear) Urine pH (4.6-8.0) Ur Specific [place] (1.005-1.030) Urine Protein (Negative) Urine Glucose (UA) (Negative) mg/dL Urine Ketones (Negative) Urine Blood (Negative) Urine Nitrite (Negative) Urine Bilirubin (Negative) Urine Urobilinogen (0.2) mg/dL Ur Leukocyte Esterase (Negative) U Hyaline Cast (Auto) (0-2) /LPF Urine Microscopic RBC (0-5) /HPF Urine Microscopic WBC (0-5) /HPF Ur Epithelial Cells (None Seen) /HPF Urine Bacteria (None Seen) /HPF Urine Culture Reflexed (NO) 03/20/25 03/20/25 03/21/25 Range/Units 21:05 22:03 00:07 WBC (4.23-9.07) x10^3/uL RBC (4.63-6.08) x10^6/uL Hgb (13.7-17.5) g/dL Hct (40.1-51.0) % MCV (79.0-92.2) fL MCH (25.7-32.2) pg MCHC (32.3-36.5) g/dL RDW (11.6-14.4) % Plt Count (163-337) x10^3/uL MPV (9.4-12.4) fL Gran % (34.0-67.9) % Immature Gran % (Auto) (0.001-0.429) % Nucleat RBC Rel Count (0.00-0.2) % Eos # (Auto) (0.04-0.54) x10^3/uL Immature Gran # (Auto) (0.001-0.031) x10^3u/L Absolute Lymphs (auto) (1.32-3.57) x10^3/uL Absolute Monos (auto) (0.30-0.82) x10^3/uL Absolute Nucleated RBC (0.00-0.012) x10^3u/L Lymphocytes % (21.8-53.1) % Monocytes % (5.3-12.2) % Eosinophils % (0.8-7.0) % Basophils % (0.2-1.2) % Absolute Granulocytes (1.78-5.38) x10^3/uL Basophils # (0.01-0.08) x10^3/uL pO2/FiO2 Ratio % VBG pH (7.32-7.42) VBG pCO2 at Pat Temp (42-55) mm/Hg VBG pO2 at Pat Temp (25-40) mm/Hg VBG HCO3 (22-28) meq/L VBG O2 Sat (Kristina) (95-100) VBG Base Excess (-2.0-2.0) VBG Hemoglobin VBG Carboxyhemoglobin (0.0-6.9) % T HGB POC Potassium (3.5-5.1) Sodium 134 L (135-145) mmol/L Potassium 4.0 (3.5-5.1) mmol/L Chloride 106 (98-107) mmol/L Carbon Dioxide 25 (22-30) mmol/L Anion Gap 7.2 (5-15) MEQ/L BUN 21 H (9-20) mg/dL Creatinine 0.86 (0.66-1.25) mg/dL Estimated GFR 90.9 ML/MIN Glucose 209 H (74-106) mg/dL POC Glucometer 149 H 239 H (50 to 500) mg/dL Hemoglobin A1c (4.5-6.0) % Calcium 8.4 (8.4-10.2) mg/dL Phosphorus 3.1 (2.5-4.5) mg/dL Magnesium (1.6-2.3) mg/dL Total Bilirubin (0.2-1.3) mg/dL AST (17-59) U/L ALT (0-50) U/L Alkaline Phosphatase (38-126) U/L Serum Total Protein (6.3-8.2) g/dL Albumin (3.5-5.0) g/dL Urine Color (Yellow) Urine Appearance (Clear) Urine pH (4.6-8.0) Ur Specific [place] (1.005-1.030) Urine Protein (Negative) Urine Glucose (UA) (Negative) mg/dL Urine Ketones (Negative) Urine Blood (Negative) Urine Nitrite (Negative) Urine Bilirubin (Negative) Urine Urobilinogen (0.2) mg/dL Ur Leukocyte Esterase (Negative) U Hyaline Cast (Auto) (0-2) /LPF Urine Microscopic RBC (0-5) /HPF Urine Microscopic WBC (0-5) /HPF Ur Epithelial Cells (None Seen) /HPF Urine Bacteria (None Seen) /HPF Urine Culture Reflexed (NO) 03/21/25 03/21/25 03/21/25 Range/Units 03:02 03:02 04:04 WBC 7.4 (4.23-9.07) x10^3/uL RBC 4.12 L (4.63-6.08) x10^6/uL Hgb 12.6 L (13.7-17.5) g/dL Hct 37.8 L (40.1-51.0) % MCV 91.7 (79.0-92.2) fL MCH 30.6 (25.7-32.2) pg MCHC 33.3 (32.3-36.5) g/dL RDW 12.6 (11.6-14.4) % Plt Count 179 (163-337) x10^3/uL MPV 10.3 (9.4-12.4) fL Gran % 56.0 (34.0-67.9) % Immature Gran % (Auto) 0.1 (0.001-0.429) % Nucleat RBC Rel Count 0.0 (0.00-0.2) % Eos # (Auto) 0.10 (0.04-0.54) x10^3/uL Immature Gran # (Auto) 0.01 (0.001-0.031) x10^3u/L Absolute Lymphs (auto) 2.50 (1.32-3.57) x10^3/uL Absolute Monos (auto) 0.59 (0.30-0.82) x10^3/uL Absolute Nucleated RBC 0.00 (0.00-0.012) x10^3u/L Lymphocytes % 34.0 (21.8-53.1) % Monocytes % 8.0 (5.3-12.2) % Eosinophils % 1.4 (0.8-7.0) % Basophils % 0.5 (0.2-1.2) % Absolute Granulocytes 4.12 (1.78-5.38) x10^3/uL Basophils # 0.04 (0.01-0.08) x10^3/uL pO2/FiO2 Ratio % VBG pH (7.32-7.42) VBG pCO2 at Pat Temp (42-55) mm/Hg VBG pO2 at Pat Temp (25-40) mm/Hg VBG HCO3 (22-28) meq/L VBG O2 Sat (Kristina) (95-100) VBG Base Excess (-2.0-2.0) VBG Hemoglobin VBG Carboxyhemoglobin (0.0-6.9) % T HGB POC Potassium (3.5-5.1) Sodium 135 (135-145) mmol/L Potassium 4.1 (3.5-5.1) mmol/L Chloride 106 (98-107) mmol/L Carbon Dioxide 23 (22-30) mmol/L Anion Gap 9.0 (5-15) MEQ/L BUN 19 (9-20) mg/dL Creatinine 0.88 (0.66-1.25) mg/dL Estimated GFR 90.2 ML/MIN Glucose 234 H (74-106) mg/dL POC Glucometer 227 H (50 to 500) mg/dL Hemoglobin A1c (4.5-6.0) % Calcium 8.7 (8.4-10.2) mg/dL Phosphorus 3.1 (2.5-4.5) mg/dL Magnesium (1.6-2.3) mg/dL Total Bilirubin 0.20 (0.2-1.3) mg/dL AST 21 (17-59) U/L ALT 27 (0-50) U/L Alkaline Phosphatase 89 (38-126) U/L Serum Total Protein 6.2 L (6.3-8.2) g/dL Albumin 3.5 (3.5-5.0) g/dL Urine Color (Yellow) Urine Appearance (Clear) Urine pH (4.6-8.0) Ur Specific [place] (1.005-1.030) Urine Protein (Negative) Urine Glucose (UA) (Negative) mg/dL Urine Ketones (Negative) Urine Blood (Negative) Urine Nitrite (Negative) Urine Bilirubin (Negative) Urine Urobilinogen (0.2) mg/dL Ur Leukocyte Esterase (Negative) U Hyaline Cast (Auto) (0-2) /LPF Urine Microscopic RBC (0-5) /HPF Urine Microscopic WBC (0-5) /HPF Ur Epithelial Cells (None Seen) /HPF Urine Bacteria (None Seen) /HPF Urine Culture Reflexed (NO) 03/21/25 03/21/25 Range/Units 05:52 07:56 WBC (4.23-9.07) x10^3/uL RBC (4.63-6.08) x10^6/uL Hgb (13.7-17.5) g/dL Hct (40.1-51.0) % MCV (79.0-92.2) fL MCH (25.7-32.2) pg MCHC (32.3-36.5) g/dL RDW (11.6-14.4) % Plt Count (163-337) x10^3/uL MPV (9.4-12.4) fL Gran % (34.0-67.9) % Immature Gran % (Auto) (0.001-0.429) % Nucleat RBC Rel Count (0.00-0.2) % Eos # (Auto) (0.04-0.54) x10^3/uL Immature Gran # (Auto) (0.001-0.031) x10^3u/L Absolute Lymphs (auto) (1.32-3.57) x10^3/uL Absolute Monos (auto) (0.30-0.82) x10^3/uL Absolute Nucleated RBC (0.00-0.012) x10^3u/L Lymphocytes % (21.8-53.1) % Monocytes % (5.3-12.2) % Eosinophils % (0.8-7.0) % Basophils % (0.2-1.2) % Absolute Granulocytes (1.78-5.38) x10^3/uL Basophils # (0.01-0.08) x10^3/uL pO2/FiO2 Ratio % VBG pH (7.32-7.42) VBG pCO2 at Pat Temp (42-55) mm/Hg VBG pO2 at Pat Temp (25-40) mm/Hg VBG HCO3 (22-28) meq/L VBG O2 Sat (Kristina) (95-100) VBG Base Excess (-2.0-2.0) VBG Hemoglobin VBG Carboxyhemoglobin (0.0-6.9) % T HGB POC Potassium (3.5-5.1) Sodium 134 L (135-145) mmol/L Potassium 4.0 (3.5-5.1) mmol/L Chloride 105 (98-107) mmol/L Carbon Dioxide 23 (22-30) mmol/L Anion Gap 9.6 (5-15) MEQ/L BUN 19 (9-20) mg/dL Creatinine 0.93 (0.66-1.25) mg/dL Estimated GFR 86.2 ML/MIN Glucose 218 H (74-106) mg/dL POC Glucometer 225 H (50 to 500) mg/dL Hemoglobin A1c (4.5-6.0) % Calcium 8.7 (8.4-10.2) mg/dL Phosphorus 3.0 (2.5-4.5) mg/dL Magnesium (1.6-2.3) mg/dL Total Bilirubin (0.2-1.3) mg/dL AST (17-59) U/L ALT (0-50) U/L Alkaline Phosphatase (38-126) U/L Serum Total Protein (6.3-8.2) g/dL Albumin (3.5-5.0) g/dL Urine Color (Yellow) Urine Appearance (Clear) Urine pH (4.6-8.0) Ur Specific [place] (1.005-1.030) Urine Protein (Negative) Urine Glucose (UA) (Negative) mg/dL Urine Ketones (Negative) Urine Blood (Negative) Urine Nitrite (Negative) Urine Bilirubin (Negative) Urine Urobilinogen (0.2) mg/dL Ur Leukocyte Esterase (Negative) U Hyaline Cast (Auto) (0-2) /LPF Urine Microscopic RBC (0-5) /HPF Urine Microscopic WBC (0-5) /HPF Ur Epithelial Cells (None Seen) /HPF Urine Bacteria (None Seen) /HPF Urine Culture Reflexed (NO) Accuchecks Date 03/21/25 Date 03/21/25 Date 03/21/25 Date 03/20/25 Date 03/20/25 Date 03/20/25 Date 03/20/25 Date 03/20/25 Date 03/20/25 Date 03/20/25 Date 03/20/25 Date 03/20/25 Date 03/20/25 Date 03/20/25 Time 08:25 Time 04:04 Time 00:07 Time 22:03 Time 21:00 Time 20:00 Time 18:50 Time 18:00 Time 17:02 Time 16:00 Time 14:55 Time 13:55 Time 13:07 Time 11:20 - Other Procedures and Tests Respiratory Therapy 03/21/25 07:37 Oxygen NASAL CANNULA 2 lpm PAYAM Encounter - PAYAM Encounter Attestation PAYAM Encounter Attestation: "[email or web address] Quan on 03/20/2025 andhavediscussed pertinent aspects of their care with Baldemar Raines and agree with the history, physical exam (any modifications based on my personal exam will be noted below), assessment, and plan as outlined in original note. Please see immediately below for my summary of findings and additional assessment and plan along with any meaningful corrections/explanations to the Subjective/Objective portions of the PAYAM note will be noted." My portion of the encounter took place via telemedicine. -Patient with history of diabetes, only on oral hypoglycemics presenting with mild DKA. Started on insulin drip per DKA protocol. Will need to be discharged on basal bolus insulin regimen with outpatient follow up with PCP for further titration.
[2025-03-20] MEDS ORDERED: TYLENOL 325 MG PO PRN (14:45)
[2025-03-20] MEDS ORDERED: Zofran 4 MG/2 ML VIAL IV PRN (14:45)
[2025-03-20] MEDS: MYXREDLIN 100 UNIT/100 ML BAG 100 UNIT/100 ML PLAST..BAG IV PRN (15:20)
[2025-03-20] MEDS: ENOXAPARIN SODIUM SQ SCH (15:22)
[2025-03-20 15:51] LABS: VBG BASE EXCESS 0.3 (-2.0-2.0); VBG CARBOXYHEMOGLOBIN 3.9 % T HGB (0.0-6.9); VBG FIO2 21.0 %; VBG HCO3- 24.6 meq/L (22-28); VBG HEMOGLOBIN 13.4; VBG O2 SATURATION 89.8 (95-100); VBG PCO2 38.0 mm/Hg (42-55); VBG PO2 53.0 mm/Hg (25-40); VBG POTASSIUM 4.4 (3.5-5.1)
[2025-03-20] MEDS: D5W/0.45NS W/ 20mEq KCl 1000 ML 1,000 ML IV SCH (17:08)
[2025-03-20] MEDS ORDERED: MEDICATION INTERVENTION MC SCH (17:30)
[2025-03-20 18:25] LABS: Calcium 8.6 mg/dL (8.4-10.2); Carbon Dioxide 23.0 mmol/L (22-30); Creatinine 1 0.97 mg/dL (0.66-1.25); EST GLOMERULAR FILTRATION RATE 81.9 ML/MIN; Glucose 250.0 mg/dL (74-106); Potassium 4.1 mmol/L (3.5-5.1)
[2025-03-20] MEDS: Lantus Insulin SQ SCH (18:48)
[2025-03-20] MEDS ORDERED: VENTOLIN COMMON CANISTER IH SCH (19:00)
[2025-03-20] MEDS: ZOCOR 20MG PO SCH (21:10)
[2025-03-20] MEDS: Flonase NASAL NS SCH (21:13)
[2025-03-20 22:19] LABS: Calcium 8.4 mg/dL (8.4-10.2); Carbon Dioxide 25.0 mmol/L (22-30); Creatinine 1 0.86 mg/dL (0.66-1.25); EST GLOMERULAR FILTRATION RATE 90.9 ML/MIN; Glucose 209.0 mg/dL (74-106); Potassium 4.0 mmol/L (3.5-5.1)
[2025-03-21] MEDS: HUMALOG SQ PRN (00:16)
[2025-03-21 03:04] LABS: BASOPHIL % 0.5 % (0.2-1.2); Basophil (Absolute #) 0.04 x10^3/uL (0.01-0.08); Eosinophil (Absolute #) 0.10 x10^3/uL (0.04-0.54); Hematocrit 37.8 % (40.1-51.0); Hemoglobin 12.6 g/dL (13.7-17.5); IMMATURE GRAN # 0.01 x10^3u/L (0.001-0.031); IMMATURE GRAN % 0.1 % (0.001-0.429); Lymphocyte (Absolute #) 2.50 x10^3/uL (1.32-3.57); Mean Corpuscular Hemoglobin 30.6 pg (25.7-32.2); Mean Corpuscular Hgb Concent. 33.3 g/dL (32.3-36.5); Monocyte (Absolute #) 0.59 x10^3/uL (0.30-0.82); NUCLEATED RBC # 0.00 x10^3u/L (0.00-0.012); NUCLEATED RBC % 0.0 % (0.00-0.2); Platelet Count 179 x10^3/uL (163-337); Red Blood Count 4.12 x10^6/uL (4.63-6.08); White Blood Count 7.4 x10^3/uL (4.23-9.07)
[2025-03-21 03:20] LABS: Calcium 8.7 mg/dL (8.4-10.2); Carbon Dioxide 23.0 mmol/L (22-30); Creatinine 1 0.88 mg/dL (0.66-1.25); EST GLOMERULAR FILTRATION RATE 90.2 ML/MIN; Glucose 234.0 mg/dL (74-106); Potassium 4.1 mmol/L (3.5-5.1); SGOT/AST 21.0 U/L (17-59); SGPT/ALT 27.0 U/L (0-50); Total Protein 6.2 g/dL (6.3-8.2)
[2025-03-21 04:50] VITALS: TEMP 97.4
[2025-03-21 06:13] LABS: Calcium 8.7 mg/dL (8.4-10.2); Carbon Dioxide 23.0 mmol/L (22-30); Creatinine 1 0.93 mg/dL (0.66-1.25); EST GLOMERULAR FILTRATION RATE 86.2 ML/MIN; Glucose 218.0 mg/dL (74-106); Potassium 4.0 mmol/L (3.5-5.1)
[2025-03-21 06:22] VITALS: RESP 21
[2025-03-21] MEDS: Toprol-Xl 25MG Tablets PO SCH (09:04)
[2025-03-21] MEDS: CLARITIN 10 MG PO SCH (09:04)
[2025-03-21] MEDS: Calcium 500MG W/Vit D Tablet PO SCH (09:04)
[2025-03-21 10:20] VITALS: BP 154/65
[2025-03-21 10:39] LABS: Calcium 8.5 mg/dL (8.4-10.2); Carbon Dioxide 25.0 mmol/L (22-30); Creatinine 1 1.08 mg/dL (0.66-1.25); EST GLOMERULAR FILTRATION RATE 72.0 ML/MIN; Glucose 366.0 mg/dL (74-106); Potassium 4.4 mmol/L (3.5-5.1)
--- NOTE | 2025-03-21 11:36 | PCM.DS ---
Discharge Summary Date of Admission: 03/20/25 14:34 Date of Discharge: 03/21/25 Admitting Physician: MAYANK SCHOFIELD MD Consults: Consults on Case 03/20/25 15:04 Nutritional Consult ROUTINE Primary Care Provider: NASIR CHAVEZ Allergies Allergies No Known Drug Allergies Allergy (Verified 03/20/25 11:17) Hospital Summary - Hospital Course Hospital Course: Mr. Wilkes is a 74-year-old male with a history of type 2 diabetes mellitus, hyperlipidemia, peripheral neuropathy, and osteoarthritis was admitted following referral from his primary care provider for severe hyperglycemia. He reported home glucose readings persistently in the 300s over the preceding week, related to dietary indiscretion with high-sugar foods. He was uncertain of his full diabetic regimen but confirmed compliance with metformin. In the emergency department, he denied infectious symptoms but noted lightheadedness and polyuria. Initial evaluation revealed serum glucose of 535 mg/dL (after 10 units IV regular insulin), sodium 128 mEq/L (pseudohyponatremia due to hyperglycemia), chloride 96, bicarbonate 21, anion gap 16.5, and BUN 28 mg/dL. Creatinine was normal. CBC showed no leukocytosis. Urinalysis demonstrated glucose > 1000 mg/dL and ketones 15 mg/dL, consistent with mild diabetic ketoacidosis (DKA). He was hemodynamically stable, afebrile, and had no infectious source on examination. A 2-liter IV fluid bolus and 10 U IV insulin were administered in the ED, with partial improvement in glucose. He was admitted for further management of DKA and metabolic monitoring. Over the admission, he received IV fluids and an insulin infusion per DKA protocol, with close monitoring of electrolytes and metabolic parameters. The anion gap normalized by 03/21/25, confirming DKA resolution. Repeat labs showed normalized BMP (sodium 133, bicarbonate 23, anion gap 11.5) and stable renal function. CBC remained unremarkable. His hemoglobin A1c returned markedly elevated at 13.96%, consistent with chronic poor glycemic control. He was transitioned to subcutaneous insulin with Lantus 20 units nightly and moderate- dose Humalog sliding scale insulin with meals. The patient demonstrated understanding of basal/bolus insulin use and previously used this regimen. He has glucose monitoring supplies at home. Lantus and Humalog pens, pen needles, and glucagon emergency kit were prescribed on discharge. At the time of discharge, he was alert, oriented, tolerating diet, and clinically stable with glucose values within acceptable range. Education provided on dietary management, insulin use, and importance of glucose logging. RN reviewed insulin administration technique and carbohydrate consistency meal planning. Follow-up arranged with his primary care provider for ongoing insulin titration and glycemic optimization. Discharge Note New Diagnosis: DKA New Medications: Lantus/humalog/glucagon Follow Up: PCP I spent 35 minutes [id number] with the patient on the day of discharge performing discharge exam, discussing hospital stay and discharge instructions with patient and caregivers, preparation of discharge records, prescriptions & referral forms and addressing any questions/concerns the patient had as documented above. - Vitals & Intake/Output Vital Signs: Vital Signs Temperature 97.4 F 03/21/25 04:00 Pulse Rate 67 03/21/25 10:00 Respiratory Rate 21 03/21/25 06:00 Blood Pressure 154/65 03/21/25 10:00 O2 Sat by Pulse Oximetry 97 03/21/25 10:00 Intake & Output: Intake & Output 03/18/25 03/19/25 03/20/25 03/21/25 11:59 11:59 11:59 11:59 Intake Total 2291 Output Total 300 Balance 1990 Weight 99.6 kg 91.1 kg - Lab Result Diagrams: 03/21/25 03:02 03/21/25 10:15 Lab Results-Last 24 Hrs: Lab Results-Last 24 Hours 03/20/25 03/20/25 03/20/25 Range/Units 11:39 11:39 11:42 WBC 7.2 (4.23-9.07) x10^3/uL RBC 4.43 L (4.63-6.08) x10^6/uL Hgb 13.7 (13.7-17.5) g/dL Hct 40.4 (40.1-51.0) % MCV 91.2 (79.0-92.2) fL MCH 30.9 (25.7-32.2) pg MCHC 33.9 (32.3-36.5) g/dL RDW 12.6 (11.6-14.4) % Plt Count 189 (163-337) x10^3/uL MPV 10.6 (9.4-12.4) fL Gran % 71.4 H (34.0-67.9) % Immature Gran % (Auto) 0.4 (0.001-0.429) % Nucleat RBC Rel Count 0.0 (0.00-0.2) % Eos # (Auto) 0.06 (0.04-0.54) x10^3/uL Immature Gran # (Auto) 0.03 (0.001-0.031) x10^3u/L Absolute Lymphs (auto) 1.48 (1.32-3.57) x10^3/uL Absolute Monos (auto) 0.45 (0.30-0.82) x10^3/uL Absolute Nucleated RBC 0.00 (0.00-0.012) x10^3u/L Lymphocytes % 20.7 L (21.8-53.1) % Monocytes % 6.3 (5.3-12.2) % Eosinophils % 0.8 (0.8-7.0) % Basophils % 0.4 (0.2-1.2) % Absolute Granulocytes 5.10 (1.78-5.38) x10^3/uL Basophils # 0.03 (0.01-0.08) x10^3/uL pO2/FiO2 Ratio % VBG pH (7.32-7.42) VBG pCO2 at Pat Temp (42-55) mm/Hg VBG pO2 at Pat Temp (25-40) mm/Hg VBG HCO3 (22-28) meq/L VBG O2 Sat (Kristina) (95-100) VBG Base Excess (-2.0-2.0) VBG Hemoglobin VBG Carboxyhemoglobin (0.0-6.9) % T HGB POC Potassium (3.5-5.1) Sodium 129 L (135-145) mmol/L Potassium 5.1 (3.5-5.1) mmol/L Chloride 96 L (98-107) mmol/L Carbon Dioxide 21 L (22-30) mmol/L Anion Gap 16.5 H (5-15) MEQ/L BUN 28 H (9-20) mg/dL Creatinine 1.08 (0.66-1.25) mg/dL Estimated GFR 72.0 ML/MIN Glucose 699 H* (74-106) mg/dL POC Glucometer (50 to 500) mg/dL Hemoglobin A1c 13.96 H (4.5-6.0) % Calcium 9.4 (8.4-10.2) mg/dL Phosphorus (2.5-4.5) mg/dL Magnesium (1.6-2.3) mg/dL Total Bilirubin 0.50 (0.2-1.3) mg/dL AST 26 (17-59) U/L ALT 37 (0-50) U/L Alkaline Phosphatase 110 (38-126) U/L Serum Total Protein 7.1 (6.3-8.2) g/dL Albumin 4.1 (3.5-5.0) g/dL Urine Color (Yellow) Urine Appearance (Clear) Urine pH (4.6-8.0) Ur Specific [place] (1.005-1.030) Urine Protein (Negative) Urine Glucose (UA) (Negative) mg/dL Urine Ketones (Negative) Urine Blood (Negative) Urine Nitrite (Negative) Urine Bilirubin (Negative) Urine Urobilinogen (0.2) mg/dL Ur Leukocyte Esterase (Negative) U Hyaline Cast (Auto) (0-2) /LPF Urine Microscopic RBC (0-5) /HPF Urine Microscopic WBC (0-5) /HPF Ur Epithelial Cells (None Seen) /HPF Urine Bacteria (None Seen) /HPF Urine Culture Reflexed (NO) 03/20/25 03/20/25 03/20/25 Range/Units 11:46 13:05 13:54 WBC (4.23-9.07) x10^3/uL RBC (4.63-6.08) x10^6/uL Hgb (13.7-17.5) g/dL Hct (40.1-51.0) % MCV (79.0-92.2) fL MCH (25.7-32.2) pg MCHC (32.3-36.5) g/dL RDW (11.6-14.4) % Plt Count (163-337) x10^3/uL MPV (9.4-12.4) fL Gran % (34.0-67.9) % Immature Gran % (Auto) (0.001-0.429) % Nucleat RBC Rel Count (0.00-0.2) % Eos # (Auto) (0.04-0.54) x10^3/uL Immature Gran # (Auto) (0.001-0.031) x10^3u/L Absolute Lymphs (auto) (1.32-3.57) x10^3/uL Absolute Monos (auto) (0.30-0.82) x10^3/uL Absolute Nucleated RBC (0.00-0.012) x10^3u/L Lymphocytes % (21.8-53.1) % Monocytes % (5.3-12.2) % Eosinophils % (0.8-7.0) % Basophils % (0.2-1.2) % Absolute Granulocytes (1.78-5.38) x10^3/uL Basophils # (0.01-0.08) x10^3/uL pO2/FiO2 Ratio % VBG pH (7.32-7.42) VBG pCO2 at Pat Temp (42-55) mm/Hg VBG pO2 at Pat Temp (25-40) mm/Hg VBG HCO3 (22-28) meq/L VBG O2 Sat (Kristina) (95-100) VBG Base Excess (-2.0-2.0) VBG Hemoglobin VBG Carboxyhemoglobin (0.0-6.9) % T HGB POC Potassium (3.5-5.1) Sodium (135-145) mmol/L Potassium (3.5-5.1) mmol/L Chloride (98-107) mmol/L Carbon Dioxide (22-30) mmol/L Anion Gap (5-15) MEQ/L BUN (9-20) mg/dL Creatinine (0.66-1.25) mg/dL Estimated GFR ML/MIN Glucose (74-106) mg/dL POC Glucometer 535 H* 460 H (50 to 500) mg/dL Hemoglobin A1c (4.5-6.0) % Calcium (8.4-10.2) mg/dL Phosphorus (2.5-4.5) mg/dL Magnesium (1.6-2.3) mg/dL Total Bilirubin (0.2-1.3) mg/dL AST (17-59) U/L ALT (0-50) U/L Alkaline Phosphatase (38-126) U/L Serum Total Protein (6.3-8.2) g/dL Albumin (3.5-5.0) g/dL Urine Color Yellow (Yellow) Urine Appearance Clear (Clear) Urine pH 5.0 (4.6-8.0) Ur Specific [place] >=1.030 A (1.005-1.030) Urine Protein Negative (Negative) Urine Glucose (UA) >=1000 A (Negative) mg/dL Urine Ketones 15 A (Negative) Urine Blood Negative (Negative) Urine Nitrite Negative (Negative) Urine Bilirubin Negative (Negative) Urine Urobilinogen 0.2 (0.2) mg/dL Ur Leukocyte Esterase Negative (Negative) U Hyaline Cast (Auto) NONE SEEN (0-2) /LPF Urine Microscopic RBC 0-2 (0-5) /HPF Urine Microscopic WBC 0-2 (0-5) /HPF Ur Epithelial Cells None Seen (None Seen) /HPF Urine Bacteria None Seen (None Seen) /HPF Urine Culture Reflexed NO (NO) 03/20/25 03/20/25 03/20/25 Range/Units 15:02 15:44 15:50 WBC (4.23-9.07) x10^3/uL RBC (4.63-6.08) x10^6/uL Hgb (13.7-17.5) g/dL Hct (40.1-51.0) % MCV (79.0-92.2) fL MCH (25.7-32.2) pg MCHC (32.3-36.5) g/dL RDW (11.6-14.4) % Plt Count (163-337) x10^3/uL MPV (9.4-12.4) fL Gran % (34.0-67.9) % Immature Gran % (Auto) (0.001-0.429) % Nucleat RBC Rel Count (0.00-0.2) % Eos # (Auto) (0.04-0.54) x10^3/uL Immature Gran # (Auto) (0.001-0.031) x10^3u/L Absolute Lymphs (auto) (1.32-3.57) x10^3/uL Absolute Monos (auto) (0.30-0.82) x10^3/uL Absolute Nucleated RBC (0.00-0.012) x10^3u/L Lymphocytes % (21.8-53.1) % Monocytes % (5.3-12.2) % Eosinophils % (0.8-7.0) % Basophils % (0.2-1.2) % Absolute Granulocytes (1.78-5.38) x10^3/uL Basophils # (0.01-0.08) x10^3/uL pO2/FiO2 Ratio 21.0 % VBG pH 7.42 (7.32-7.42) VBG pCO2 at Pat Temp 38 L (42-55) mm/Hg VBG pO2 at Pat Temp 53 H (25-40) mm/Hg VBG HCO3 24.6 (22-28) meq/L VBG O2 Sat (Kristina) 89.8 L (95-100) VBG Base Excess 0.3 (-2.0-2.0) VBG Hemoglobin 13.4 VBG Carboxyhemoglobin 3.9 (0.0-6.9) % T HGB POC Potassium 4.4 (3.5-5.1) Sodium (135-145) mmol/L Potassium (3.5-5.1) mmol/L Chloride (98-107) mmol/L Carbon Dioxide (22-30) mmol/L Anion Gap (5-15) MEQ/L BUN (9-20) mg/dL Creatinine (0.66-1.25) mg/dL Estimated GFR ML/MIN Glucose (74-106) mg/dL POC Glucometer 401 H (50 to 500) mg/dL Hemoglobin A1c (4.5-6.0) % Calcium (8.4-10.2) mg/dL Phosphorus 3.5 (2.5-4.5) mg/dL Magnesium 1.8 (1.6-2.3) mg/dL Total Bilirubin (0.2-1.3) mg/dL AST (17-59) U/L ALT (0-50) U/L Alkaline Phosphatase (38-126) U/L Serum Total Protein (6.3-8.2) g/dL Albumin (3.5-5.0) g/dL Urine Color (Yellow) Urine Appearance (Clear) Urine pH (4.6-8.0) Ur Specific [place] (1.005-1.030) Urine Protein (Negative) Urine Glucose (UA) (Negative) mg/dL Urine Ketones (Negative) Urine Blood (Negative) Urine Nitrite (Negative) Urine Bilirubin (Negative) Urine Urobilinogen (0.2) mg/dL Ur Leukocyte Esterase (Negative) U Hyaline Cast (Auto) (0-2) /LPF Urine Microscopic RBC (0-5) /HPF Urine Microscopic WBC (0-5) /HPF Ur Epithelial Cells (None Seen) /HPF Urine Bacteria (None Seen) /HPF Urine Culture Reflexed (NO) 03/20/25 03/20/25 03/20/25 Range/Units 16:01 17:00 18:00 WBC (4.23-9.07) x10^3/uL RBC (4.63-6.08) x10^6/uL Hgb (13.7-17.5) g/dL Hct (40.1-51.0) % MCV (79.0-92.2) fL MCH (25.7-32.2) pg MCHC (32.3-36.5) g/dL RDW (11.6-14.4) % Plt Count (163-337) x10^3/uL MPV (9.4-12.4) fL Gran % (34.0-67.9) % Immature Gran % (Auto) (0.001-0.429) % Nucleat RBC Rel Count (0.00-0.2) % Eos # (Auto) (0.04-0.54) x10^3/uL Immature Gran # (Auto) (0.001-0.031) x10^3u/L Absolute Lymphs (auto) (1.32-3.57) x10^3/uL Absolute Monos (auto) (0.30-0.82) x10^3/uL Absolute Nucleated RBC (0.00-0.012) x10^3u/L Lymphocytes % (21.8-53.1) % Monocytes % (5.3-12.2) % Eosinophils % (0.8-7.0) % Basophils % (0.2-1.2) % Absolute Granulocytes (1.78-5.38) x10^3/uL Basophils # (0.01-0.08) x10^3/uL pO2/FiO2 Ratio % VBG pH (7.32-7.42) VBG pCO2 at Pat Temp (42-55) mm/Hg VBG pO2 at Pat Temp (25-40) mm/Hg VBG HCO3 (22-28) meq/L VBG O2 Sat (Kristina) (95-100) VBG Base Excess (-2.0-2.0) VBG Hemoglobin VBG Carboxyhemoglobin (0.0-6.9) % T HGB POC Potassium (3.5-5.1) Sodium 133 L (135-145) mmol/L Potassium 4.1 (3.5-5.1) mmol/L Chloride 104 (98-107) mmol/L Carbon Dioxide 23 (22-30) mmol/L Anion Gap 10.7 (5-15) MEQ/L BUN 24 H (9-20) mg/dL Creatinine 0.97 (0.66-1.25) mg/dL Estimated GFR 81.9 ML/MIN Glucose 250 H (74-106) mg/dL POC Glucometer 302 H 249 H (50 to 500) mg/dL Hemoglobin A1c (4.5-6.0) % Calcium 8.6 (8.4-10.2) mg/dL Phosphorus 3.1 (2.5-4.5) mg/dL Magnesium (1.6-2.3) mg/dL Total Bilirubin (0.2-1.3) mg/dL AST (17-59) U/L ALT (0-50) U/L Alkaline Phosphatase (38-126) U/L Serum Total Protein (6.3-8.2) g/dL Albumin (3.5-5.0) g/dL Urine Color (Yellow) Urine Appearance (Clear) Urine pH (4.6-8.0) Ur Specific [place] (1.005-1.030) Urine Protein (Negative) Urine Glucose (UA) (Negative) mg/dL Urine Ketones (Negative) Urine Blood (Negative) Urine Nitrite (Negative) Urine Bilirubin (Negative) Urine Urobilinogen (0.2) mg/dL Ur Leukocyte Esterase (Negative) U Hyaline Cast (Auto) (0-2) /LPF Urine Microscopic RBC (0-5) /HPF Urine Microscopic WBC (0-5) /HPF Ur Epithelial Cells (None Seen) /HPF Urine Bacteria (None Seen) /HPF Urine Culture Reflexed (NO) 03/20/25 03/20/25 03/20/25 Range/Units 18:00 18:57 19:58 WBC (4.23-9.07) x10^3/uL RBC (4.63-6.08) x10^6/uL Hgb (13.7-17.5) g/dL Hct (40.1-51.0) % MCV (79.0-92.2) fL MCH (25.7-32.2) pg MCHC (32.3-36.5) g/dL RDW (11.6-14.4) % Plt Count (163-337) x10^3/uL MPV (9.4-12.4) fL Gran % (34.0-67.9) % Immature Gran % (Auto) (0.001-0.429) % Nucleat RBC Rel Count (0.00-0.2) % Eos # (Auto) (0.04-0.54) x10^3/uL Immature Gran # (Auto) (0.001-0.031) x10^3u/L Absolute Lymphs (auto) (1.32-3.57) x10^3/uL Absolute Monos (auto) (0.30-0.82) x10^3/uL Absolute Nucleated RBC (0.00-0.012) x10^3u/L Lymphocytes % (21.8-53.1) % Monocytes % (5.3-12.2) % Eosinophils % (0.8-7.0) % Basophils % (0.2-1.2) % Absolute Granulocytes (1.78-5.38) x10^3/uL Basophils # (0.01-0.08) x10^3/uL pO2/FiO2 Ratio % VBG pH (7.32-7.42) VBG pCO2 at Pat Temp (42-55) mm/Hg VBG pO2 at Pat Temp (25-40) mm/Hg VBG HCO3 (22-28) meq/L VBG O2 Sat (Kristina) (95-100) VBG Base Excess (-2.0-2.0) VBG Hemoglobin VBG Carboxyhemoglobin (0.0-6.9) % T HGB POC Potassium (3.5-5.1) Sodium (135-145) mmol/L Potassium (3.5-5.1) mmol/L Chloride (98-107) mmol/L Carbon Dioxide (22-30) mmol/L Anion Gap (5-15) MEQ/L BUN (9-20) mg/dL Creatinine (0.66-1.25) mg/dL Estimated GFR ML/MIN Glucose (74-106) mg/dL POC Glucometer 266 H 206 H 192 H (50 to 500) mg/dL Hemoglobin A1c (4.5-6.0) % Calcium (8.4-10.2) mg/dL Phosphorus (2.5-4.5) mg/dL Magnesium (1.6-2.3) mg/dL Total Bilirubin (0.2-1.3) mg/dL AST (17-59) U/L ALT (0-50) U/L Alkaline Phosphatase (38-126) U/L Serum Total Protein (6.3-8.2) g/dL Albumin (3.5-5.0) g/dL Urine Color (Yellow) Urine Appearance (Clear) Urine pH (4.6-8.0) Ur Specific [place] (1.005-1.030) Urine Protein (Negative) Urine Glucose (UA) (Negative) mg/dL Urine Ketones (Negative) Urine Blood (Negative) Urine Nitrite (Negative) Urine Bilirubin (Negative) Urine Urobilinogen (0.2) mg/dL Ur Leukocyte Esterase (Negative) U Hyaline Cast (Auto) (0-2) /LPF Urine Microscopic RBC (0-5) /HPF Urine Microscopic WBC (0-5) /HPF Ur Epithelial Cells (None Seen) /HPF Urine Bacteria (None Seen) /HPF Urine Culture Reflexed (NO) 03/20/25 03/20/25 03/21/25 Range/Units 21:05 22:03 00:07 WBC (4.23-9.07) x10^3/uL RBC (4.63-6.08) x10^6/uL Hgb (13.7-17.5) g/dL Hct (40.1-51.0) % MCV (79.0-92.2) fL MCH (25.7-32.2) pg MCHC (32.3-36.5) g/dL RDW (11.6-14.4) % Plt Count (163-337) x10^3/uL MPV (9.4-12.4) fL Gran % (34.0-67.9) % Immature Gran % (Auto) (0.001-0.429) % Nucleat RBC Rel Count (0.00-0.2) % Eos # (Auto) (0.04-0.54) x10^3/uL Immature Gran # (Auto) (0.001-0.031) x10^3u/L Absolute Lymphs (auto) (1.32-3.57) x10^3/uL Absolute Monos (auto) (0.30-0.82) x10^3/uL Absolute Nucleated RBC (0.00-0.012) x10^3u/L Lymphocytes % (21.8-53.1) % Monocytes % (5.3-12.2) % Eosinophils % (0.8-7.0) % Basophils % (0.2-1.2) % Absolute Granulocytes (1.78-5.38) x10^3/uL Basophils # (0.01-0.08) x10^3/uL pO2/FiO2 Ratio % VBG pH (7.32-7.42) VBG pCO2 at Pat Temp (42-55) mm/Hg VBG pO2 at Pat Temp (25-40) mm/Hg VBG HCO3 (22-28) meq/L VBG O2 Sat (Kristina) (95-100) VBG Base Excess (-2.0-2.0) VBG Hemoglobin VBG Carboxyhemoglobin (0.0-6.9) % T HGB POC Potassium (3.5-5.1) Sodium 134 L (135-145) mmol/L Potassium 4.0 (3.5-5.1) mmol/L Chloride 106 (98-107) mmol/L Carbon Dioxide 25 (22-30) mmol/L Anion Gap 7.2 (5-15) MEQ/L BUN 21 H (9-20) mg/dL Creatinine 0.86 (0.66-1.25) mg/dL Estimated GFR 90.9 ML/MIN Glucose 209 H (74-106) mg/dL POC Glucometer 149 H 239 H (50 to 500) mg/dL Hemoglobin A1c (4.5-6.0) % Calcium 8.4 (8.4-10.2) mg/dL Phosphorus 3.1 (2.5-4.5) mg/dL Magnesium (1.6-2.3) mg/dL Total Bilirubin (0.2-1.3) mg/dL AST (17-59) U/L ALT (0-50) U/L Alkaline Phosphatase (38-126) U/L Serum Total Protein (6.3-8.2) g/dL Albumin (3.5-5.0) g/dL Urine Color (Yellow) Urine Appearance (Clear) Urine pH (4.6-8.0) Ur Specific [place] (1.005-1.030) Urine Protein (Negative) Urine Glucose (UA) (Negative) mg/dL Urine Ketones (Negative) Urine Blood (Negative) Urine Nitrite (Negative) Urine Bilirubin (Negative) Urine Urobilinogen (0.2) mg/dL Ur Leukocyte Esterase (Negative) U Hyaline Cast (Auto) (0-2) /LPF Urine Microscopic RBC (0-5) /HPF Urine Microscopic WBC (0-5) /HPF Ur Epithelial Cells (None Seen) /HPF Urine Bacteria (None Seen) /HPF Urine Culture Reflexed (NO) 03/21/25 03/21/25 03/21/25 Range/Units 03:02 03:02 04:04 WBC 7.4 (4.23-9.07) x10^3/uL RBC 4.12 L (4.63-6.08) x10^6/uL Hgb 12.6 L (13.7-17.5) g/dL Hct 37.8 L (40.1-51.0) % MCV 91.7 (79.0-92.2) fL MCH 30.6 (25.7-32.2) pg MCHC 33.3 (32.3-36.5) g/dL RDW 12.6 (11.6-14.4) % Plt Count 179 (163-337) x10^3/uL MPV 10.3 (9.4-12.4) fL Gran % 56.0 (34.0-67.9) % Immature Gran % (Auto) 0.1 (0.001-0.429) % Nucleat RBC Rel Count 0.0 (0.00-0.2) % Eos # (Auto) 0.10 (0.04-0.54) x10^3/uL Immature Gran # (Auto) 0.01 (0.001-0.031) x10^3u/L Absolute Lymphs (auto) 2.50 (1.32-3.57) x10^3/uL Absolute Monos (auto) 0.59 (0.30-0.82) x10^3/uL Absolute Nucleated RBC 0.00 (0.00-0.012) x10^3u/L Lymphocytes % 34.0 (21.8-53.1) % Monocytes % 8.0 (5.3-12.2) % Eosinophils % 1.4 (0.8-7.0) % Basophils % 0.5 (0.2-1.2) % Absolute Granulocytes 4.12 (1.78-5.38) x10^3/uL Basophils # 0.04 (0.01-0.08) x10^3/uL pO2/FiO2 Ratio % VBG pH (7.32-7.42) VBG pCO2 at Pat Temp (42-55) mm/Hg VBG pO2 at Pat Temp (25-40) mm/Hg VBG HCO3 (22-28) meq/L VBG O2 Sat (Kristina) (95-100) VBG Base Excess (-2.0-2.0) VBG Hemoglobin VBG Carboxyhemoglobin (0.0-6.9) % T HGB POC Potassium (3.5-5.1) Sodium 135 (135-145) mmol/L Potassium 4.1 (3.5-5.1) mmol/L Chloride 106 (98-107) mmol/L Carbon Dioxide 23 (22-30) mmol/L Anion Gap 9.0 (5-15) MEQ/L BUN 19 (9-20) mg/dL Creatinine 0.88 (0.66-1.25) mg/dL Estimated GFR 90.2 ML/MIN Glucose 234 H (74-106) mg/dL POC Glucometer 227 H (50 to 500) mg/dL Hemoglobin A1c (4.5-6.0) % Calcium 8.7 (8.4-10.2) mg/dL Phosphorus 3.1 (2.5-4.5) mg/dL Magnesium (1.6-2.3) mg/dL Total Bilirubin 0.20 (0.2-1.3) mg/dL AST 21 (17-59) U/L ALT 27 (0-50) U/L Alkaline Phosphatase 89 (38-126) U/L Serum Total Protein 6.2 L (6.3-8.2) g/dL Albumin 3.5 (3.5-5.0) g/dL Urine Color (Yellow) Urine Appearance (Clear) Urine pH (4.6-8.0) Ur Specific [place] (1.005-1.030) Urine Protein (Negative) Urine Glucose (UA) (Negative) mg/dL Urine Ketones (Negative) Urine Blood (Negative) Urine Nitrite (Negative) Urine Bilirubin (Negative) Urine Urobilinogen (0.2) mg/dL Ur Leukocyte Esterase (Negative) U Hyaline Cast (Auto) (0-2) /LPF Urine Microscopic RBC (0-5) /HPF Urine Microscopic WBC (0-5) /HPF Ur Epithelial Cells (None Seen) /HPF Urine Bacteria (None Seen) /HPF Urine Culture Reflexed (NO) 03/21/25 03/21/25 03/21/25 Range/Units 05:52 07:56 10:15 WBC (4.23-9.07) x10^3/uL RBC (4.63-6.08) x10^6/uL Hgb (13.7-17.5) g/dL Hct (40.1-51.0) % MCV (79.0-92.2) fL MCH (25.7-32.2) pg MCHC (32.3-36.5) g/dL RDW (11.6-14.4) % Plt Count (163-337) x10^3/uL MPV (9.4-12.4) fL Gran % (34.0-67.9) % Immature Gran % (Auto) (0.001-0.429) % Nucleat RBC Rel Count (0.00-0.2) % Eos # (Auto) (0.04-0.54) x10^3/uL Immature Gran # (Auto) (0.001-0.031) x10^3u/L Absolute Lymphs (auto) (1.32-3.57) x10^3/uL Absolute Monos (auto) (0.30-0.82) x10^3/uL Absolute Nucleated RBC (0.00-0.012) x10^3u/L Lymphocytes % (21.8-53.1) % Monocytes % (5.3-12.2) % Eosinophils % (0.8-7.0) % Basophils % (0.2-1.2) % Absolute Granulocytes (1.78-5.38) x10^3/uL Basophils # (0.01-0.08) x10^3/uL pO2/FiO2 Ratio % VBG pH (7.32-7.42) VBG pCO2 at Pat Temp (42-55) mm/Hg VBG pO2 at Pat Temp (25-40) mm/Hg VBG HCO3 (22-28) meq/L VBG O2 Sat (Kristina) (95-100) VBG Base Excess (-2.0-2.0) VBG Hemoglobin VBG Carboxyhemoglobin (0.0-6.9) % T HGB POC Potassium (3.5-5.1) Sodium 134 L 132 L (135-145) mmol/L Potassium 4.0 4.4 (3.5-5.1) mmol/L Chloride 105 102 (98-107) mmol/L Carbon Dioxide 23 25 (22-30) mmol/L Anion Gap 9.6 9.0 (5-15) MEQ/L BUN 19 18 (9-20) mg/dL Creatinine 0.93 1.08 (0.66-1.25) mg/dL Estimated GFR 86.2 72.0 ML/MIN Glucose 218 H 366 H (74-106) mg/dL POC Glucometer 225 H (50 to 500) mg/dL Hemoglobin A1c (4.5-6.0) % Calcium 8.7 8.5 (8.4-10.2) mg/dL Phosphorus 3.0 3.4 (2.5-4.5) mg/dL Magnesium (1.6-2.3) mg/dL Total Bilirubin (0.2-1.3) mg/dL AST (17-59) U/L ALT (0-50) U/L Alkaline Phosphatase (38-126) U/L Serum Total Protein (6.3-8.2) g/dL Albumin (3.5-5.0) g/dL Urine Color (Yellow) Urine Appearance (Clear) Urine pH (4.6-8.0) Ur Specific [place] (1.005-1.030) Urine Protein (Negative) Urine Glucose (UA) (Negative) mg/dL Urine Ketones (Negative) Urine Blood (Negative) Urine Nitrite (Negative) Urine Bilirubin (Negative) Urine Urobilinogen (0.2) mg/dL Ur Leukocyte Esterase (Negative) U Hyaline Cast (Auto) (0-2) /LPF Urine Microscopic RBC (0-5) /HPF Urine Microscopic WBC (0-5) /HPF Ur Epithelial Cells (None Seen) /HPF Urine Bacteria (None Seen) /HPF Urine Culture Reflexed (NO) Micro Results-Entire Visit: Accuchecks Date 03/21/25 Date 03/21/25 Date 03/21/25 Date 03/20/25 Date 03/20/25 Date 03/20/25 Date 03/20/25 Date 03/20/25 Date 03/20/25 Date 03/20/25 Date 03/20/25 Date 03/20/25 Date 03/20/25 Time 08:25 Time 04:04 Time 00:07 Time 22:03 Time 21:00 Time 20:00 Time 18:50 Time 18:00 Time 17:02 Time 16:00 Time 14:55 Time 13:55 Time 13:07 - Procedures and Test Procedures and Tests throughout Hospitalization: Therapy Orders & Screens 03/20/25 16:39 Oxygen Nasal Cannula 2 lpm Comment: Diagnosis: DKA Respiratory Therapy Assessment DAILY Comment: Diagnosis: DKA 03/21/25 07:37 Oxygen NASAL CANNULA 2 lpm Comment: Diagnosis: DKA Discharge Exam General Appearance: no apparent distress Neurologic Exam: alert, oriented x 3, cooperative Eye Exam: PERRL Ears, Nose, Throat Exam: normal ENT inspection Neck Exam: normal inspection Respiratory Exam: normal breath sounds, lungs clear Cardiovascular Exam: regular rate/rhythm, normal heart sounds Gastrointestinal/Abdomen Exam: soft, normal bowel sounds Male Genitalia Exam: deferred Rectal Exam: deferred Back Exam: normal inspection Extremity Exam: normal inspection Skin Exam: normal color Final Diagnosis/Problem List - Final Discharge Diagnosis/Problem (1) DKA (diabetic ketoacidosis) Current Visit: Yes Status: Acute Assessment & Plan: Initial glucose 535 mg/dL, anion gap 16.5, bicarbonate 21 mEq/L; resolved with IV insulin and hydration. HbA1c 13.96%, reflecting chronic poor control. Transitioned to subcutaneous insulin (Lantus 20 units nightly + Humalog moderate sliding scale). Advised to maintain glucose log and follow up for insulin titration. Outpatient endocrinology referral placed. Discharge education: DKA warning signs, hypoglycemia management with glucagon, dietary adherence. Code(s): E11.10 - TYPE 2 DIABETES MELLITUS WITH KETOACIDOSIS WITHOUT COMA (2) Hyponatremia Current Visit: Yes Status: Acute Assessment & Plan: Admission sodium 128 mEq/L, corrected 133mEq/L; improved with glucose control and IV fluids. No further treatment required. Code(s): E87.1 - HYPO-OSMOLALITY AND HYPONATREMIA (3) DMII (diabetes mellitus, type 2) Current Visit: Yes Status: Acute Assessment & Plan: HbA1c 13.96%. Continue new basal/bolus insulin regimen with home monitoring discontinue oral medications Follow up with PCP for medication optimization and adherence review- pt declines endocrinology referral. (4) HLD (hyperlipidemia) Current Visit: Yes Status: Acute Assessment & Plan: Continue home statin therapy. Encourage dietary modification and lipid panel recheck in 3 months. Code(s): E78.5 - HYPERLIPIDEMIA, UNSPECIFIED (5) Peripheral neuropathy Current Visit: Yes Status: Acute Assessment & Plan: Continue current neuropathic pain regimen (likely gabapentin). Reinforce glucose control to mitigate progression. Monitor for foot ulceration and sensory loss; advised on daily foot checks. Code(s): G62.9 - POLYNEUROPATHY, UNSPECIFIED (6) Osteoarthritis Current Visit: Yes Status: Acute Assessment & Plan: Continue conservative measures and pain management. Avoid NSAIDs during periods of dehydration or glycemic instability to reduce renal stress. Discharge Condition: Stable Diet: Diabetic, consistent carbohydrate. Activity: As tolerated. Follow-Up: Primary care provider in 1 week. Endocrinology within 24 weeks for insulin adjustment. field services manager as needed for ongoing support. Discharge Medications: Insulin glargine (Lantus) 20 units nightly. Insulin lispro (Humalog) per moderate sliding scale with meals. Statin (per home regimen). Glucagon emergency kit. Glucose monitor, strips, and lancets- patient has at home Code(s): M19.90 - UNSPECIFIED OSTEOARTHRITIS, UNSPECIFIED SITE - Discharge Discharge Date: 03/21/25 Disposition: Home, Self-Care Condition: Stable Prescriptions: New Insulin Lispro [Insulin Lispro Junior Jaimes] See Rx Instructions .ROUTE .COMPLEX 30 Days #1 unit MDD 15 Insulin Glargine [Lantus Insulin] 20 unit SQ HS unit Continue Blood Sugar Diagnostic [Onetouch Verio Test Strip] See Rx Instructions .ROUTE .COMPLEX Mupirocin See Rx Instructions .ROUTE .COMPLEX Fluticasone Propionate See Rx Instructions .ROUTE .COMPLEX Umeclidinium Brm/Vilanterol Tr [Anoro Ellipta 62.5-25 Mcg INH] See Rx Instructions .ROUTE .COMPLEX Atorvastatin Calcium 20 mg PO HS Albuterol Sulfate [Albuterol Sulfate Hfa] 2 puffs IH Q6H Calcium Carbonate [Calcium] 600 mg PO DAILY Metoprolol Succinate 25 mg PO DAILY Loratadine 10 mg PO DAILY Meloxicam 15 mg PO DAILY Blood-Glucose Meter [Onetouch Verio Flex Meter] See Rx Instructions .ROUTE .COMPLEX Discontinued glyBURIDE [Glyburide] 5 mg PO BID Metformin HCl [Metformin ER Osmotic] 1,000 mg PO DAILY Additional Instructions: Discontinue metformin and glyburide Your Insulin Regimen Basal insulin (Lantus / insulin glargine): Take 20 units once daily at the same time every evening. This controls blood sugar between meals and overnight Inject into the abdomen or thigh, rotating sites daily. Do not mix with any other insulin. Bolus insulin (Humalog / insulin lispro): Use before meals according to your moderate sliding scale: Check blood sugar immediately before eating. Use your prescribed scale Inject subcutaneously within 15 minutes before the meal. Skip if you skip the meal. Blood Glucose Monitoring Check before each meal and at bedtime (4 times daily). Record readings in a glucose log or romina. Bring log to every visit. Target ranges: Fasting/pre-meal: 93195 mg/dL 2 hours post-meal: < 180 mg/dL When to Adjust or Call for Help If readings consistently > 250 mg/dL despite insulin: call your providerdose adjustment may be needed. If fasting values < 70 mg/dL or frequent low sugars: hold Humalog and contact your clinician before changing Lantus dose. Signs of hypoglycemia: shakiness, sweating, confusion, blurred vision, or irritability. Treat immediately with 15 g of fast sugar ( cup juice, 34 glucose tabs). Recheck in 15 min; repeat if still < 70 mg/dL. If unable to take by mouth or unresponsive, a family member should give glucagon injection and call 911. Sick-Day Rules Never stop basal insulin, even if youre not eating. Check blood glucose every 24 hours. Check urine ketones if glucose > 250 mg/dL twice in a row. Increase fluids (water or sugar-free drinks). Go to the emergency department or call your provider if: Moderate/large ketones Persistent vomiting Blood glucose > 300 mg/dL that wont come down Signs of dehydration or confusion Diet and Lifestyle Follow a consistent-carbohydrate meal plan; avoid sugary beverages and snacks. Space carbohydrates evenly across three meals. Pair carbohydrates with protein or healthy fat to blunt spikes. Exercise 30 minutes most days but check glucose before activity; if < 100 mg/dL, have a small carb snack first. Supplies and Storage Store unopened insulin pens in the refrigerator; once opened, keep at room temperature (below 86 F) and discard after 28 days. Never freeze insulin. Keep spare pen needles, glucose test strips, lancets, and glucagon kit available at all times. Follow-Up Schedule with primary care provider in 1 week and endocrinology in 24 weeks for dose titration. Bring glucose log and insulin pens to each visit. Follow up with: NASIR CHAVEZ [Primary Care Provider, [facility]] - 03/24/25 1:30 pm
[2025-03-21 11:57] VITALS: O2SAT 96
[2025-03-21 11:59] VITALS: PULSE 76
== END 2025-03-21 13:59 | disposition home or self-care (01) ==
LOC: ED 11:10 → ICU 14:34
PROVIDERS: ADMIT Internal Medicine; ATTEND Internal Medicine
DX: E11.10 Type 2 diabetes mellitus with ketoacidosis without coma (principal); E11.65 Type 2 diabetes mellitus with hyperglycemia; E78.5 Hyperlipidemia, unspecified; E87.1 Hypo-osmolality and hyponatremia; G62.9 Polyneuropathy, unspecified; M19.90 Unspecified osteoarthritis, unspecified site; Z79.899 Other long term (current) drug therapy